=== PATIENT | male | born 1945 | race Caucasian/White ===

== ENCOUNTER 2021-07-23 12:15 | Emergency (ER) | payer MEDICARE ==
[~2021-07-23] VITALS: Ht 193 cm; Wt 127.0 kg
[2021-07-23 12:16] VITALS: BP 129/77
[2021-07-23] MEDS ORDERED: ROSU40TA PO (12:25)
[2021-07-23] MEDS ORDERED: TAMS-12 PO (12:25)
[2021-07-23] MEDS ORDERED: METO25TA3 PO (12:25)
[2021-07-23] MEDS ORDERED: HYDR50TA61 PO (12:25)
[2021-07-23] MEDS ORDERED: VALS320T2 PO (12:25)
[2021-07-23] MEDS ORDERED: MINO2.5T PO (12:25)
[2021-07-23] MEDS ORDERED: AMLO-213 PO (12:25)
[2021-07-23] MEDS ORDERED: FINA5TAB3 PO (12:25)
[2021-07-23] MEDS ORDERED: CLON0.1T PO (12:25)
[2021-07-23] MEDS ORDERED: SENN1TAB77 PO (12:25)
[2021-07-23] MEDS ORDERED: FURO-145 PO (12:25)
[2021-07-23] MEDS ORDERED: INSU100V7 SQ (12:25)
[2021-07-23] MEDS ORDERED: MULT-447 PO (12:25)
[2021-07-23] MEDS ORDERED: ASCO-340 PO (12:25)
[2021-07-23] MEDS ORDERED: ENOX40DI SQ (12:28)
--- NOTE | 2021-07-23 12:42 | NUR ---
SEEN AND EXAMINED BY .
--- NOTE | 2021-07-23 12:52 | NUR ---
Patient discharged to home in stable condition. Written and verbal after care instructions given. Patient verbalizes understanding of instruction.
== END 2021-07-23 12:53 | disposition home or self-care (01) ==
LOC: ER 12:17
DX: L98.9 Disorder of the skin and subcutaneous tissue, unspecified (principal); H91.90 Unspecified hearing loss, unspecified ear; I50.9 Heart failure, unspecified; I11.0 Hypertensive heart disease with heart failure; E11.9 Type 2 diabetes mellitus without complications; Z79.899 Other long term (current) drug therapy

== ENCOUNTER 2022-01-02 02:24 | Inpatient (IN) | payer OTHER, MEDICARE ==
[~2022-01-02] VITALS: Ht 193 cm; Wt 143.9 kg
[~2022-01-02 02:24] MED LIST: AMLO-213 PO; ASCO-340 PO; CLON0.1T PO; ENOX40DI SQ; FINA5TAB3 PO; FURO-145 PO; HYDR50TA61 PO; INSU100V7 SQ; METO25TA3 PO; MINO2.5T PO; MULT-447 PO; ROSU40TA PO; SENN1TAB77 PO; TAMS-12 PO; VALS320T2 PO
--- NOTE | 2022-01-02 02:44 | NUR ---
RACHID [id number] FROM [facility] FOR C/O "R KIDNEY PAIN" X 1 DAY WITH HX OF KIDNEY STONE. PATIENT IS AAOX4. ABLE TO MAKE NEEDS KNOWN. ATTACHED TO MONITOR. VITALS CHECKED.
[2022-01-02] MEDS ORDERED: KETOROLAC TROMETHAMINE INJ 30 MG/ML VIAL ONE (02:52)
[2022-01-02] MEDS ORDERED: ONDANSETRON HCL/PF 4 MG/2 ML VIAL ONE (02:52)
--- NOTE | 2022-01-02 02:57 | NUR ---
RFA #18G S/L BLOOD COLLECTED AND GIVEN TO LAB
[2022-01-02] MEDS ORDERED: KETOROLAC TROMETHAMINE INJ 30 MG/ML VIAL IV ONE (03:00)
[2022-01-02] MEDS ORDERED: ONDANSETRON HCL/PF 4 MG/2 ML VIAL IVP ONE (03:00)
[2022-01-02] MEDS ORDERED: IV NS 0.9% 500 ML BAG IV ONE (03:00)
--- NOTE | 2022-01-02 03:01 | NUR ---
DR. RAUL ROCA AT PT'S BEDSIDE
--- NOTE | 2022-01-02 03:01 | NUR ---
EMT AT PT'S BEDSIDE FOR EKG
[2022-01-02 03:09] LABS: BASOPHILS % (AUTO) 0.4 % (0.0-2.0); EOSINOPHILS % (AUTO) 2.8 % (0.0-6.0); HEMATOCRIT 32 % (39-51); HEMOGLOBIN 10.7 g/dL (13.5-17.5); LYMPHOCYTES # (AUTO) 1.1 K/uL (0.8-4.8); LYMPHOCYTES % (AUTO) 12.8 % (20.0-44.0); MEAN CORPUSCULAR HGB CONC 33 g/dl (31.0-36.0); MEAN CORPUSCULAR VOLUME 82 fL (80-96); MONOCYTES # (AUTO) 0.8 K/uL (0.1-1.30); MONOCYTES % (AUTO) 9.1 % (2.0-12.0); NEUTROPHILS # (AUTO) 6.3 K/uL (1.8-8.9); NEUTROPHILS % (AUTO) 74.9 % (43.0-81.0); PLATELET COUNT (AUTO) 287 K/uL (150-450); RED BLOOD CELL COUNT(AUTO) 3.97 MIL/uL (4.5-6.0); WHITE BLOOD COUNT (AUTO) 8.5 K/uL (4.3-11.0)
--- NOTE | 2022-01-02 03:09 | NUR ---
PT TAKEN TO CT VIA FRANCOIS
--- NOTE | 2022-01-02 03:17 | NUR ---
NO URINE OUTPUT AT THIS TIME; DR. CARTER DO AWARE. WILL F/U WITH URINE OUTPUT
[2022-01-02 03:22] LABS: ALANINE AMINOTRANSFERASE 12 U/L (12-78); ALBUMIN 3.4 g/dL (3.4-5.0); ALKALINE PHOSPHATASE 62 U/L (46-116); ASPARTATE AMINOTRANSFERASE 10 U/L (15-37); BILIRUBIN,DIRECT 0.1 mg/dL (0.0-0.2); BILIRUBIN,TOTAL 0.3 mg/dL (0.2-1.0); CALCIUM, SERUM 8.9 mg/dL (8.5-10.1); CARBON DIOXIDE 33 mmol/L (21-32); CHLORIDE 100 mmol/L (98-107); CREATININE 1.7 mg/dL (0.6-1.3); GLUCOSE 220 mg/dL (74-106); LIPASE 48 U/L (73-393); POTASSIUM 3.5 mmol/L (3.5-5.1); SODIUM SERUM 139 mmol/L (136-145); TOTAL PROTEIN, SERUM 8.7 g/dL (6.4-8.2); UREA NITROGEN, BLOOD 29 mg/dL (7-18)
--- NOTE | 2022-01-02 04:40 | NUR ---
URINE COLLECTED AND SENT TO LAB
--- NOTE | 2022-01-02 05:12 | NUR ---
PAGED DR MALLORIE HARPER GEN SURG FOR CONSULT PER MD'S ORDER
--- NOTE | 2022-01-02 05:23 | NUR ---
COVID ANTIGEN SWAB COLLECTED AND SENT TO LAB
--- NOTE | 2022-01-02 05:24 | NUR ---
NOT ABLE TO DIGITALLY DISIMPACT PT; DR. CARTER DO AWARE.
[2022-01-02] MEDS ORDERED: MORPHINE SULFATE INJ 4 MG/ML DISP.SYRIN ONE (05:25)
[2022-01-02] MEDS ORDERED: MORPHINE SULFATE INJ 2 MG/ML DISP.SYRIN IV ONE (05:30)
--- NOTE | 2022-01-02 05:38 | NUR ---
DR. CARTER ON PHONE CALL WITH ALICIA CHRISTIANSON NP
[2022-01-02] MEDS ORDERED: MAGNESIUM HYDROXIDE 30 ML UDC PO PRN (06:00)
[2022-01-02] MEDS ORDERED: IV NS 0.9% 1,000 ML IV PRN (06:00)
[2022-01-02] MEDS ORDERED: MAG HYDROX/AL HYDROX/SIMETH 30 ML UDC PO PRN (06:00)
[2022-01-02] MEDS ORDERED: Z GUARD REMEDY 4 OZ OINT TP PRN ×2 (06:00→11:00)
[2022-01-02] MEDS ORDERED: MINERAL OIL 133 ML (PYXIS) 1 EA ENEMA RC ONE (06:00)
[2022-01-02] MEDS ORDERED: ONDANSETRON HCL/PF 4 MG/2 ML VIAL IVP PRN ×2 (06:00→11:00)
[2022-01-02] MEDS ORDERED: ZOLPIDEM TARTRATE 5 MG TABLET PO PRN (06:00)
[2022-01-02 06:12] LABS: BILIRUBIN,URINE NEGATIVE (NEGATIVE); COLOR,URINE YELLOW (YELLOW); LEUKOCYTE ESTERASE ,URINE LARGE (NEGATIVE); NITRITE, URINE POSITIVE (NEGATIVE); PROTEIN,URINE 100 mg/dl (NEGATIVE); UGLUCOSE NEGATIVE (NEGATIVE); UROBILINOGEN,URINE 0.2 EU/dL (0.2)
[2022-01-02 06:21] LABS: BACTERIA,URINE Many /HPF (None Seen); SQUAMOUS EPITHELIAL CELL,UR Few /HPF (None Seen); WBC,URINE TOO NUMEROUS TO COUN /HPF (0-3)
--- NOTE | 2022-01-02 07:20 | NUR ---
CLINICAL INFORAMTION GIVEN TO DR MALLORIE HARPER OVER THE PHONE AND THE RESULTS OF THE CT WAS SENT TO
[2022-01-02] MEDS ORDERED: ONDA4TAB11 SL (08:00)
[2022-01-02] MEDS ORDERED: FAMO20TA8 PO (08:00)
[2022-01-02] MEDS ORDERED: SENN-261 PO (08:00)
[2022-01-02] MEDS ORDERED: ASPI-1169 PO (08:00)
[2022-01-02] MEDS ORDERED: METF-440 PO (08:00)
[2022-01-02] MEDS ORDERED: DIPH25CA51 PO (08:00)
[2022-01-02] MEDS ORDERED: GLUC1KIT SQ (08:00)
[2022-01-02] MEDS ORDERED: IBUP-1955 PO (08:00)
[2022-01-02] MEDS ORDERED: HYDR-3980 PO (08:00)
[2022-01-02] MEDS ORDERED: DOCU-141 PO (08:00)
[2022-01-02] MEDS ORDERED: MAGN400O6 PO (08:00)
[2022-01-02] MEDS ORDERED: CALC500T13 PO (08:00)
[2022-01-02] MEDS ORDERED: INSU100V42 SQ (08:00)
[2022-01-02] MEDS ORDERED: POLY17PO4 PO (08:00)
[2022-01-02] MEDS ORDERED: ACET-868 PO (08:00)
[2022-01-02] MEDS ORDERED: CHOL400T58 PO (08:00)
[2022-01-02] MEDS ORDERED: hydrOXYzine PAMOATE 50 MG CAPSULE PO SCH (09:00)
--- NOTE | 2022-01-02 09:46 | NUR ---
GOT BED 307-2
--- NOTE | 2022-01-02 09:51 | NUR ---
report given to Rtia Castellano to continue care.
[2022-01-02] MEDS ORDERED: ANESTHESIA TRAY IN PYXIS 1 EA TRAY MC ONE (10:25)
--- NOTE | 2022-01-02 10:37 | NUR ---
JAGDEEP IBRAHIM WILL CONTACT ORDERING DR ROCA TO PT UNABLE TO LAY FLAT FOR EXAM
[2022-01-02] MEDS ORDERED: IV D5/0.45 NACL 1,000 ML IV PRN (11:00)
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
[2022-01-02 11:20] VITALS: BP 189/87
--- NOTE | 2022-01-02 11:20 | NUR ---
RN NOTES RECEIVED A CALL FROM ADELINA FROM OR, PER ADELINA, DR. OMER ORDERED TO GET CONSENT FOR AN EMERGENCY SIGMOIDOSCOPY PROCEDURE FROM PT AND TO ADMINISTER TAP WATER ENEMA PRIOR TO THE PROCEDURE.
--- NOTE | 2022-01-02 11:50 | NUR ---
RN NOTES CONSENT FOR SIGMOIDOSCOPY PROCEDURE, BLOOD TRANSFUSION, AND ANESTHESIA OBTAINED AND SIGNED BY PT AND TAP WATER ENEMA ADMINISTERED. PT WAS PICKED UP BY OR STAFF WITH ADELINA VIA BED FOR THE SIGMOIDOSCOPY PROCEDURE.
[2022-01-02] MEDS ORDERED: FAMOTIDINE/PF INJ 20 MG/2 ML VIAL IV ONE (11:59)
[2022-01-02] MEDS ORDERED: PIPERACILLIN /TAZOBACTAM 3.375 G in IV D5W 50 ML IV ONE (12:00)
[2022-01-02] MEDS: CLONIDINE HCL 0.1 MG TABLET PO SCH ×3 (12:00→23:41)
[2022-01-02] MEDS: hydrOXYzine PAMOATE 25 MG CAPSULE PO SCH ×2 (13:00→17:12)
[2022-01-02] MEDS ORDERED: hydrALAZINE HCL IV 20 MG VIAL ONE (13:05)
--- NOTE | 2022-01-02 13:30 | NUR ---
RN NOTE PT BACK TO THE UNIT FROM OR WITH OR NURSE RENZO. PT ON S/P SIGMOIDOSCOPY, DENIES PAIN OR DISCOMFORT AT THIS TIME. PER RENZO, PT HAD VOLVULUS IN THE RECTOSIGMOID REGION AND DR. OMER DECOMPRESSED THE COLONIC VOLVULUS AND FIXED IT. PT'S VITAL SIGNS: BP 155/73, P 63, TEMP 97.8, R 18, SPO2 98%. WILL CONTINUE TO MONITOR PT.
--- NOTE | 2022-01-02 15:00 | NUR ---
RN NOTE PT REQUESTING IF HE CAN EAT NOW CALLED DR. NOBLES AND LEFT MESSAGE MADE HIM AWARE THAT PT IS STILL NPO AND PT IS REQUESTING IF HE CAN EAT NOW. AWAITING FOR A CALL BACK.
[2022-01-02] MEDS: MORPHINE SULFATE INJ 2 MG/ML DISP.SYRIN IV PRN (15:59)
[2022-01-02 16:00] VITALS: BP 157/71
--- NOTE | 2022-01-02 16:05 | NUR ---
RN NOTE PT C/O BACK PAIN WITH PAIN SCALE LEVEL OF 9/10 AND REQUESTED FOR MORPHINE. MORPHINE 2MG IVP GIVEN ORDERED PRN Q4H. WILL MONITOR AND REASSESS PT.
--- NOTE | 2022-01-02 17:06 | NUR ---
RN NOTE RECEIVED A CALL FROM FATUMA HOLCOMB MD TO START PT ON CLEAR LIQUID DIET.
[2022-01-02] MEDS: MINOXIDIL (2.5MG) 2.5 MG TABLET PO SCH (17:13)
--- NOTE | 2022-01-02 19:28 | NUR ---
MS RN CLOSING NOTE PT IN BED ASLEEP, EASILY AROUSED. PATIENT IS ALERT AND ORIENTED X3, ABLE TO MAKE NEEDS KNOWN. PT ON ROOM AIR, TOLERATING WELL. NO SOB NOTED AT THIS TIME. NOT IN ANY SIGN OF RESPIRATORY DISTRESS. IV ACCESS IN RFA G #18 INTACT AND PATENT WITH D5 1/2 NS INFUSING AT 75ML/HR. ALL NEEDS ATTENDED. KEPT CLEAN AND COMFORTABLE. SAFETY MEASURES INITIATED: BED IN LOWEST AND LOCKED POSITION, BED ALARM ON, SIDE RAILS UP X2, AND CALL LIGHT WITHIN REACH. ENDORSED TO LENS INSERTER NURSE FOR WINNIE.
[2022-01-02 20:00] VITALS: BP 162/78
--- NOTE | 2022-01-02 20:06 | NUR ---
MS RN OPENING NOTE RECEIVED PATIENT SLEEPING IN BED, EASILY AWAKENED, PT ALERT/ORIENTED X 2-3, PT ABLE TO MAKE NEEDS KNOWN. PT STABLE ON RA, NO S/S OF DISTRESS OR SOB NOTED, BREATHING EVEN AND UNLABORED. IV ACCESS ON RFA #18G INTACT AND INFUSING D5 1/2NS @ 75 ML/HR. SAFETY MEASURES IN PLACE: CALL LIGHT WITHIN REACH, SIDE RAILS UP X 2, BED LOCKED IN LOWEST POSITION, BED ALARM ON. WILL CONTINUE TO MONITOR PATIENT
[2022-01-02] MEDS: PIPERACILLIN /TAZOBACTAM 3.375 G in IV D5W 100 ML IV SCH (20:32)
[2022-01-02] MEDS: ATORVASTATIN 40 MG TABLET PO SCH (21:06)
[2022-01-02] MEDS: TAMSULOSIN 0.4 MG CAP.SR.24H PO SCH (21:06)
[2022-01-02] MEDS: SENNOSIDES/DOCUSATE SODIUM 1 TAB TABLET PO SCH (21:06)
[2022-01-02] MEDS: VALSARTAN 80 MG TABLET PO SCH (21:07)
[2022-01-03] MEDS: MORPHINE SULFATE INJ 2 MG/ML DISP.SYRIN IV PRN (00:33)
[2022-01-03] MEDS: PIPERACILLIN /TAZOBACTAM 3.375 G in IV D5W 100 ML IV SCH ×3 (04:09→20:28)
[2022-01-03] MEDS: CLONIDINE HCL 0.1 MG TABLET PO SCH ×3 (06:24→17:16)
--- NOTE | 2022-01-03 06:39 | NUR ---
MS RN CLOSING NOTE PATIENT AWAKE IN BED, PT ALERT/ORIENTED X 3, PT ABLE TO MAKE NEEDS KNOWN. PATIENT HARD OF HEARING. PT STABLE ON RA, NO S/S OF DISTRESS OR SOB NOTED, BREATHING EVEN AND UNLABORED. IV ACCESS ON RFA #18G INTACT AND INFUSING ZOSYN @ 25 ML/HR. MEDICATIONS GIVEN ORDERED, PT NEEDS MET THROUGHOUT SHIFT. SAFETY MEASURES IN PLACE: CALL LIGHT WITHIN REACH, SIDE RAILS UP X 2, BED LOCKED IN LOWEST POSITION, BED ALARM ON. WILL ENDORSE TO DAYSHIFT NURSE FOR CONTINUITY OF CARE
--- NOTE | 2022-01-03 07:41 | NUR ---
MS RN OPENING NOTE RECEIVED PATIENT SLEEPING IN BED BUT EASILY AWAKEN. PT ALERT/ORIENTED X 2-3, PT ABLE TO MAKE NEEDS KNOWN. IS STABLE ON RA, NO S/S OF DISTRESS OR SOB NOTED, BREATHING EVEN AND UNLABORED. IV ACCESS ON RFA #18G INTACT AND INFUSING D5 1/2NS @ 75 ML/HR. SAFETY MEASURES IN PLACE: CALL LIGHT AND TABLE WITHIN REACH, SIDE RAILS UP X 2, BED LOCKED IN LOWEST POSITION, BED ALARM ON; WILL CARRY OUT PLAN OF CARE DURING SHIFT.
[2022-01-03 08:00] VITALS: BP 128/68
[2022-01-03] MEDS: PANTOPRAZOLE 40 MG VIAL IV SCH (09:06)
[2022-01-03] MEDS: MINOXIDIL (2.5MG) 2.5 MG TABLET PO SCH ×2 (09:08→17:17)
[2022-01-03] MEDS: hydrOXYzine PAMOATE 25 MG CAPSULE PO SCH ×3 (09:09→17:16)
[2022-01-03] MEDS: ASCORBIC ACID 500 MG TABLET PO SCH ×2 (09:10→09:14)
[2022-01-03] MEDS: FUROSEMIDE 20 MG TABLET PO SCH (09:12)
[2022-01-03] MEDS: AMLODIPINE BESYLATE 10 MG TABLET PO SCH (09:13)
[2022-01-03] MEDS: METOPROLOL SUCCINATE 25 MG TAB.SR.24H PO SCH (09:15)
[2022-01-03] MEDS: MULTIVIT W/MINERALS 1 TAB TABLET PO SCH (09:15)
[2022-01-03] MEDS: FINASTERIDE (5 MG) 5 MG TABLET PO SCH (09:16)
--- NOTE | 2022-01-03 11:00 | NUR ---
per pt request, with help pf 5 staff , pt moved from bed 1 to bed 2 with isoflex matrress
--- NOTE | 2022-01-03 11:36 | NUR ---
pt refused AM labs again, RN and lab staff explained to pt importance of blood draw, pt declined, states "they took already 3 vials last night". RN and staff offered to try labs in the PM, ps states "ok, maybe".
[2022-01-03 11:51] VITALS: BP 128/68
[2022-01-03] MEDS: ENOXAPARIN SODIUM 40 MG/0.4 ML DISP.SYRIN SQ SCH (12:11)
--- NOTE | 2022-01-03 12:30 | NUR ---
MS RN NOTES: PT AGREED TO BLOOD DRAW
[2022-01-03 13:37] LABS: HEMATOCRIT 31 % (39-51); HEMOGLOBIN 10.1 g/dL (13.5-17.5); LYMPHOCYTES # (AUTO) 0.7 K/uL (0.8-4.8); LYMPHOCYTES % (AUTO) 10.9 % (20.0-44.0); MEAN CORPUSCULAR HGB CONC 33 g/dl (31.0-36.0); MEAN CORPUSCULAR VOLUME 82 fL (80-96); MONOCYTES # (AUTO) 0.6 K/uL (0.1-1.30); NEUTROPHILS # (AUTO) 4.8 K/uL (1.8-8.9); NEUTROPHILS % (AUTO) 76.1 % (43.0-81.0); PLATELET COUNT (AUTO) 241 K/uL (150-450); RED BLOOD CELL COUNT(AUTO) 3.75 MIL/uL (4.5-6.0); WHITE BLOOD COUNT (AUTO) 6.3 K/uL (4.3-11.0)
[2022-01-03 15:01] LABS: CALCIUM, SERUM 8.2 mg/dL (8.5-10.1); CARBON DIOXIDE 28 mmol/L (21-32); CHLORIDE 100 mmol/L (98-107); CHOLESTEROL 92 mg/dL (<200); CREATININE 1.7 mg/dL (0.6-1.3); GLUCOSE 243 mg/dL (74-106); HDL CHOLESTEROL 37 mg/dL (40-60); LDL 46 mg/dL (0-99); PHOSPHORUS 2.9 mg/dL (2.5-4.9); POTASSIUM 3.2 mmol/L (3.5-5.1); SODIUM SERUM 136 mmol/L (136-145); THYROID STIMULATING HORMONE 2.559 uIU/mL (0.358-3.74); TRIGLYCERIDES 95 mg/dL (30-150); UREA NITROGEN, BLOOD 26 mg/dL (7-18)
[2022-01-03 16:00] VITALS: BP 126/51
[2022-01-03] MEDS: METFORMIN 500 MG TABLET PO SCH (17:39)
[2022-01-03] MEDS ORDERED: POTASSIUM CHLORIDE 20 MEQ POWDER PACKET PO SCH (18:00)
--- NOTE | 2022-01-03 19:11 | NUR ---
MS RN CLOSING NOTES: PATIENT ASLEEP BUT EASILY AWAKEN. PT ALERT/ORIENTED X 2-3 WITH PERIODS OF FORGETFULNESS. PT HARD OF HEARING ON R SIDE, ABLE TO HEAR BETTER ON LEFT EAR. PT ABLE TO MAKE NEEDS KNOWN. IS STABLE ON RA, NO S/S OF DISTRESS OR SOB NOTED, BREATHING EVEN AND UNLABORED. IV ACCESS ON RFA #18G, SALINE LOCKED, IV FLUIDS DC'D PER MD. SKIN ASSESSMENT DONE AND DOCUMENTED IN CHART, WOUND CARE CONSULT ORDERED. KEPT PT DRY, CLEAN AND COMFORTABLE. SAFETY MEASURES IN PLACE: CALL LIGHT AND TABLE WITHIN REACH, SIDE RAILS UP X 2, BED LOCKED IN LOWEST POSITION, BED ALARM ON; WILL CARRY OUT PLAN OF CARE DURING SHIFT.
--- NOTE | 2022-01-03 19:24 | NUR ---
RN OPENING NOTE PATIENT IN BED, EYES CLOSED, SLEEPING. PATIENT IS A/O X 2-3 AT THIS TIME, WITH PERIODS OF CONFUSION. PATIENT IS ON RA, TOLERATING WELL, NO SOB NOTED, BREATHING EVEN AND UNLABORED. PATIENT NOTED TO HAVE HEARING DIFFICULTIES. PATIENT HAS A RFA 18 G, SALINE LOCKED ONLY. PATIENT DOES NOT REPORT OF ANY PAIN AT THIS TIME. SAFETY MEASURES IN PLACE: BED LOCKED AND IN LOWEST POSITION, CALL LIGHT WITHIN REACH, SIDE RAILS UP. WILL MONITOR PATIENT CLOSELY.
[2022-01-03 20:00] VITALS: BP 125/65
[2022-01-03] MEDS: VALSARTAN 80 MG TABLET PO SCH (22:02)
[2022-01-03] MEDS: TAMSULOSIN 0.4 MG CAP.SR.24H PO SCH (22:02)
[2022-01-03] MEDS: ATORVASTATIN 40 MG TABLET PO SCH (22:03)
[2022-01-03] MEDS: SENNOSIDES/DOCUSATE SODIUM 1 TAB TABLET PO SCH (22:03)
--- NOTE | 2022-01-03 22:30 | NUR ---
RN NOTE PATIENT COMPLAINING THAT IV ON THE R FA 22G GRIDER AND IS PAINFUL. L HAND 22 G ESTABLISHED. PATENT AND INTACT, RESUMED IV ABX.
[2022-01-04] MEDS: CLONIDINE HCL 0.1 MG TABLET PO SCH ×4 (00:11→17:41)
[2022-01-04] MEDS: PIPERACILLIN /TAZOBACTAM 3.375 G in IV D5W 100 ML IV SCH ×3 (04:02→20:10)
--- NOTE | 2022-01-04 06:00 | NUR ---
PATIENT REFUSED TO BE TURNED AND REPOSITIONED.
--- NOTE | 2022-01-04 06:23 | NUR ---
PATIENT REFUSED TO HAVE LABS DRAWN, PHLEBOTOMISTS WILL COME BACK LATER.
--- NOTE | 2022-01-04 06:41 | NUR ---
RN CLOSING NOTE PATIENT IN BED, EYES CLOSED, SLEEPING. PATIENT IS A/O X 2-3 AT THIS TIME, WITH PERIODS OF CONFUSION AND FORGETFULNESS. PATIENT IS ON RA, TOLERATING WELL, NO SOB NOTED, BREATHING EVEN AND UNLABORED. PATIENT NOTED TO HAVE HEARING DIFFICULTIES. PATIENT HAS A L HAND 22 G, ZOSYN IV ABX STILL ONGOING. PATIENT DOES NOT REPORT OF ANY PAIN AT THIS TIME. SAFETY MEASURES IN PLACE: BED LOCKED AND IN LOWEST POSITION, CALL LIGHT WITHIN REACH, SIDE RAILS UP. ALL NEEDS MET AND ATTENDED. ALL ORDERS CARRIED OUT. WILL ENDORSE TO DAY SHIFT NURSE FOR WINNIE.
--- NOTE | 2022-01-04 07:30 | NUR ---
MS RN OPENING NOTE RECEIVED PATIENT ON BED, AWAKE AND A/O X 2-3 AT THIS TIME, WITH PERIODS OF CONFUSION. ON ROOM AIR TOLERATING WELL, NO SOB NOTED, BREATHING EVEN AND UNLABORED. PATIENT NOTED TO HAVE HEARING DIFFICULTIES AT THE RIGHT SIDE. WITH IV ACCESS AT THE RIGHT FOREARM G18, SALINE LOCKED, PATENT AND INTACT. SAFETY MEASURES IN PLACED: BED LOCKED AND IN LOWEST POSITION, CALL LIGHT WITHIN REACH, SIDE RAILS UP. WILL MONITOR PATIENT CLOSELY.
[2022-01-04] MEDS: MORPHINE SULFATE INJ 2 MG/ML DISP.SYRIN IV PRN ×3 (07:53→19:59)
--- NOTE | 2022-01-04 07:53 | NUR ---
RN NOTE PATIENT WAS COMPLAINING OF PAIN AT THE BACK AT THE SCALE OF 9/10. MORPHINE 2MG IV WAS GIVEN PRN FOR PAIN.
--- NOTE | 2022-01-04 08:30 | NUR ---
RN NOTE PATIENT REFUSED THE SALVAGE WINDER FOR BLOOD DRAW. SALVAGE WINDER WILL COME BACK LATER FOR BLOOD DRAW.
[2022-01-04] MEDS: PANTOPRAZOLE 40 MG VIAL IV SCH (08:55)
[2022-01-04] MEDS: FINASTERIDE (5 MG) 5 MG TABLET PO SCH (08:56)
[2022-01-04] MEDS: MINOXIDIL (2.5MG) 2.5 MG TABLET PO SCH ×2 (08:56→17:40)
[2022-01-04] MEDS: MULTIVIT W/MINERALS 1 TAB TABLET PO SCH (08:56)
[2022-01-04] MEDS: FUROSEMIDE 20 MG TABLET PO SCH (08:57)
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
--- NOTE | 2022-01-04 09:13 | NUR ---
WOUND CARE CONSULT: PT PRESENTS ANGRY AND IRRITABLE WITH DRY FACIAL LESIONS, PRESENT ON ADMISSION. PT ALSO NOTED TO HAVE REDNESS TO ABDOMINAL/GROIN SKIN FOLDS AND EDEMA WITH DISCOLORATIONS/SCALY SKIN TO LOWER LEGS, PRESENT ON ADMISSION. 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 DR EDMONDSON NOTIFIED. RECOMMENDATIONS MADE FOR SKIN PROTECTION. DISCUSSED WITH NURSING STAFF. PT REFUSED TO TURN FOR FULL SKIN ASSESSMENT AND REFUSED TO HAVE HEELS FLOATED ON PILLOWS. PT IS ON [place] ISOFLEX LOW AIRLOSS BED. MD IN AGREEMENT WITH PLAN OF CARE.
--- NOTE | 2022-01-04 09:30 | NUR ---
RN NOTE CHARGE NURSE CHANGED ASSIGNMENT AND WILL GIVE PATIENT A MALE NURSE. WILL ENDORSE PATIENT TO JAGDEEP GONZALES.
[2022-01-04] MEDS: METFORMIN 500 MG TABLET PO SCH ×2 (09:34→17:40)
[2022-01-04] MEDS: ASCORBIC ACID 500 MG TABLET PO SCH (09:34)
[2022-01-04] MEDS: hydrOXYzine PAMOATE 25 MG CAPSULE PO SCH ×3 (09:34→17:40)
[2022-01-04] MEDS: METOPROLOL SUCCINATE 25 MG TAB.SR.24H PO SCH (09:34)
[2022-01-04] MEDS: ENOXAPARIN SODIUM 40 MG/0.4 ML DISP.SYRIN SQ SCH (09:35)
[2022-01-04] MEDS: AMLODIPINE BESYLATE 10 MG TABLET PO SCH (09:35)
--- NOTE | 2022-01-04 09:45 | NUR ---
MS RN NOTE RECEIVED ENDORSEMENT FROM JAGDEEP MCCABE FOR CONTINUITY OF CARE. PATIENT IN STABLE CONDITION.
[2022-01-04] MEDS: CLOTRIMAZOLE 1% 15 GM TUBE TP SCH (17:45)
--- NOTE | 2022-01-04 19:00 | NUR ---
MS RN CLOSING NOTE PATIENT ON BED, AWAKE AND A/O X 3 AT THIS TIME. ON ROOM AIR TOLERATING WELL, NO SOB NOTED, BREATHING EVEN AND UNLABORED. PATIENT NOTED TO HAVE HEARING DIFFICULTIES AND HEARS BETTER ON THE LEFT EAR BUT STILL [place]. WITH IV ACCESS AT THE RIGHT FOREARM G18, SALINE LOCKED, PATENT AND INTACT. PATIENT REFUSED BLOOD DRAW AND WAS VERY RUDE TO CARE PROVIDED EARLIER. PATIENT SEEMED TO HAVE CALMED DOWN AND HAD NO UNTOWARD BEHAVIOR AFTER THE CHANGE. SAFETY MEASURES IN PLACED: BED LOCKED AND IN LOWEST POSITION, CALL LIGHT WITHIN REACH, SIDE RAILS UP. ENDORSED PATIENT TO NEXT SHIFT FOR CONTINUITY OF CARE.
[2022-01-04 20:00] VITALS: BP 118/62
--- NOTE | 2022-01-04 20:37 | NUR ---
RN OPENING NOTE PATIENT AWAKE IN BED. A/OX3. NO S/S OF DISTRESS, BREATHING WITHOUT DIFFICULTY ON ROOM AIR. L-HAND #22 SL INTACT AND PATENT. SAFETY MEASURES IN PLACE: BED LOCKED IN PLACE AND AT LOWEST POSITION, RAILS UP X2, CALL SILVER WITHIN REACH. WILL CONTINUE TO MONITOR PATIENT.
[2022-01-04] MEDS: TAMSULOSIN 0.4 MG CAP.SR.24H PO SCH (21:55)
[2022-01-04] MEDS: SENNOSIDES/DOCUSATE SODIUM 1 TAB TABLET PO SCH (21:55)
[2022-01-04] MEDS: VALSARTAN 80 MG TABLET PO SCH (21:55)
[2022-01-04] MEDS: ATORVASTATIN 40 MG TABLET PO SCH (21:55)
[2022-01-05] MEDS: CLONIDINE HCL 0.1 MG TABLET PO SCH ×4 (00:03→17:07)
[2022-01-05] MEDS: MORPHINE SULFATE INJ 2 MG/ML DISP.SYRIN IV PRN ×4 (02:34→21:42)
[2022-01-05] MEDS: PIPERACILLIN /TAZOBACTAM 3.375 G in IV D5W 100 ML IV SCH ×3 (05:16→20:20)
--- NOTE | 2022-01-05 05:33 | NUR ---
RN NOTE PATIENT WAS OFFERED TO BE CLEANED BY SATYA, SERENA AND MYSELF. PATIENT REFUSED. PATIENT WAS EDUCATED, BUT NONETHELESS DECLINED. PATIENT WANTED "TO SLEEP". PATIENT STABLE; WILL CONTINUE TO MONITOR PATIENT.
--- NOTE | 2022-01-05 06:20 | NUR ---
RN NOTE PATIENT SHOWS A TRICKLE OF URINE WHEN HE URINATES AND COMPLAINED OF VERY MILD PAIN AT HIS BLADDER. PATIENT IS GROSSLY, MORBIDLY OBESE W/ HIS STOMACH PUTTING PRESSURE ON HIS BLADDER. BLADDER SCANNER OBTAINED TO VERIFY ANY RESIDUAL. 180CC WERE SHOWN TO BE PRESENT, AND PATIENT WAS STILL SHOWING AN ABILITY TO URINATE. PATIENT STABLE; WILL CONTINUE TO MONITOR PATIENT.
--- NOTE | 2022-01-05 06:58 | NUR ---
RN CLOSING NOTE PATIENT AWAKE IN BED. A/OX3. NO S/S OF DISTRESS, BREATHING WITHOUT DIFFICULTY ON ROOM AIR. L-HAND #22 TKO INTACT AND PATENT. SAFETY MEASURES IN PLACE: BED LOCKED AND AT LOWEST POSITION, RAILS UP X2, CALL SILVER WITHIN REACH. WILL ENDORSE TO NEXT SHIFT FOR WINNIE.
[2022-01-05 07:00] VITALS: BP 139/62
--- NOTE | 2022-01-05 07:15 | NUR ---
RN-NOTES RECEIVED PATIENT SLEEPING WITH BREATHING EVEN AND NONLABORED EASILY AROUSE,NO ACUTE DISTRESS NOTED. PATIENT HAD IV LINE ON LEFT HAND #22. INTACT. WILL CONT. MONITORING.
[2022-01-05] MEDS: PANTOPRAZOLE 40 MG TABLET.DR PO SCH (07:57)
[2022-01-05] MEDS: METFORMIN 500 MG TABLET PO SCH ×2 (08:57→17:07)
[2022-01-05] MEDS: FINASTERIDE (5 MG) 5 MG TABLET PO SCH (08:57)
[2022-01-05] MEDS: ASCORBIC ACID 500 MG TABLET PO SCH (08:57)
[2022-01-05] MEDS: MULTIVIT W/MINERALS 1 TAB TABLET PO SCH (08:57)
[2022-01-05] MEDS: hydrOXYzine PAMOATE 25 MG CAPSULE PO SCH ×3 (08:58→17:06)
[2022-01-05] MEDS: METOPROLOL SUCCINATE 25 MG TAB.SR.24H PO SCH (08:59)
[2022-01-05] MEDS: MINOXIDIL (2.5MG) 2.5 MG TABLET PO SCH ×2 (08:59→17:07)
[2022-01-05] MEDS: FUROSEMIDE 20 MG TABLET PO SCH (09:00)
[2022-01-05] MEDS: AMLODIPINE BESYLATE 10 MG TABLET PO SCH (09:00)
[2022-01-05] MEDS: ENOXAPARIN SODIUM 40 MG/0.4 ML DISP.SYRIN SQ SCH (09:07)
[2022-01-05] MEDS: CLOTRIMAZOLE 1% 15 GM TUBE TP SCH ×2 (09:25→17:16)
--- NOTE | 2022-01-05 19:10 | NUR ---
RN-NOTES PATIENT LYING IN BED INTERMITTENTLY SLEEPING ,COMPLIANT WITH MEDICATIONS. ABLE TO MAKE NEEDS KNOWN TO THE STAFF. NOTED PATIENT WITH DEMANDING ,NEEDY AND EASILY ANGRY BEHAVIOR. GOOD SIMONA CARE RENDERED. PATIENT REFUSE TO USE HIS COMPRESSOR ON EXPLAINED RISK AND BENEFITS BUT PATIENT STILL REFUSE. IV LINE ON RIGHT HAND #22, INTACT. ALL NEEDS ATTENDED AND ANTICIPATED. WILL ENDORSE TO INCOMING NURSE FOR CONTINUITY OF CARE.
[2022-01-05 20:00] VITALS: BP 13/64
--- NOTE | 2022-01-05 20:11 | NUR ---
RN OPENING NOTE PATIENT AWAKE IN BED. A/OX4. NO S/S OF DISTRESS, BREATHING WITHOUT DIFFICULTY ON ROOM AIR. L-HAND #20 SL INTACT AND PATENT. SAFETY MEASURES IN PLACE: BED LOCKED AND AT LOWEST POSITION, RAILS UP X2, CALL SILVER WITHIN REACH. WILL CONTINUE TO MONITOR PATIENT.
[2022-01-05] MEDS: TAMSULOSIN 0.4 MG CAP.SR.24H PO SCH (21:42)
[2022-01-05] MEDS: SENNOSIDES/DOCUSATE SODIUM 1 TAB TABLET PO SCH (21:42)
[2022-01-05] MEDS: VALSARTAN 80 MG TABLET PO SCH (21:42)
[2022-01-05] MEDS: ATORVASTATIN 40 MG TABLET PO SCH (21:42)
[2022-01-06] MEDS: CLONIDINE HCL 0.1 MG TABLET PO SCH ×5 (00:36→17:57)
[2022-01-06] MEDS: MORPHINE SULFATE INJ 2 MG/ML DISP.SYRIN IV PRN ×3 (01:50→10:58)
[2022-01-06] MEDS: PIPERACILLIN /TAZOBACTAM 3.375 G in IV D5W 100 ML IV SCH ×4 (04:15→20:00)
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
--- NOTE | 2022-01-06 06:46 | NUR ---
RN CLOSING NOTE PATIENT ASLEEP IN BED. A/OX3. NO S/S OF DISTRESS, BREATHING WITHOUT DIFFICULTY ON ROOM AIR. R-HAND SL #20 SL INTACT AND PATENT. SAFETY MEASURES IN PLACE: BED LOCKED IN PLACE, AT LOWEST POSITION, RAILS UP X2, CALL SILVER WITHIN REACH. WILL ENDORSE TO NEXT SHIFT FOR WINNIE.
[2022-01-06 07:00] VITALS: BP 155/72
--- NOTE | 2022-01-06 07:44 | NUR ---
MS RN OPENING NOTE PATIENT LAYING IN BED, A/O X 3, ABLE TO MAKE NEEDS KNOWN. TOLERATING WELL ON ROOM AIR WITH NO S/S RESPIRATORY DISTRESS. NO COMPLAINTS OF PAIN OR DISCOMFORT. R HAND # 20 SL CLEAN, INTACT, AND FLUSHING WELL. SAFETY MEASURES IN PLACE: BED LOCKED IN PLACE, AT LOWEST POSITION, RAILS UP X2, CALL SILVER WITHIN REACH. WILL CONTINUE TO MONITOR.
[2022-01-06] MEDS: PANTOPRAZOLE 40 MG TABLET.DR PO SCH (08:12)
[2022-01-06] MEDS: FUROSEMIDE 20 MG TABLET PO SCH (08:32)
[2022-01-06] MEDS: METFORMIN 500 MG TABLET PO SCH ×2 (08:33→17:54)
[2022-01-06] MEDS: FINASTERIDE (5 MG) 5 MG TABLET PO SCH (08:33)
[2022-01-06] MEDS: MULTIVIT W/MINERALS 1 TAB TABLET PO SCH (08:33)
[2022-01-06] MEDS: hydrOXYzine PAMOATE 25 MG CAPSULE PO SCH ×3 (08:34→17:54)
[2022-01-06] MEDS: ASCORBIC ACID 500 MG TABLET PO SCH (08:34)
[2022-01-06] MEDS: ENOXAPARIN SODIUM 40 MG/0.4 ML DISP.SYRIN SQ SCH (08:35)
[2022-01-06] MEDS: CLOTRIMAZOLE 1% 15 GM TUBE TP SCH ×2 (08:36→17:55)
[2022-01-06] MEDS: AMLODIPINE BESYLATE 10 MG TABLET PO SCH (08:40)
[2022-01-06] MEDS: METOPROLOL SUCCINATE 25 MG TAB.SR.24H PO SCH (08:40)
[2022-01-06] MEDS: MINOXIDIL (2.5MG) 2.5 MG TABLET PO SCH ×2 (08:40→17:54)
--- NOTE | 2022-01-06 13:14 | NUR ---
MS RN NOTE PATIENT REFUSED HIS 1200 AND 1300 BLOOD PRESSURE MEDICATIONS AND ZOSYN. RISKS AND BENEFITS EXPLAINED X 3, PATIENT CONTINUED TO REFUSE MEDICATIONS.
[2022-01-06 16:00] VITALS: BP 162/80
--- NOTE | 2022-01-06 19:00 | NUR ---
MS RN CLOSING NOTES PATIENT LAYING IN BED, A/O X 3, ABLE TO MAKE NEEDS KNOWN. TOLERATING WELL ON ROOM AIR WITH NO S/S RESPIRATORY DISTRESS. NO COMPLAINTS OF PAIN OR DISCOMFORT. NO IV ACCESS AT THIS TIME, PATIENT REFUSED IV START AT THIS TIME, MD AWARE. SAFETY MEASURES IN PLACE: BED LOCKED IN PLACE, AT LOWEST POSITION, RAILS UP X2, CALL SILVER WITHIN REACH. ALL NEEDS MET. PATIENT TURNED Q2H DURING SHIFT. WILL ENDORSE TO SENIOR NATIONAL ACCOUNT MANAGER FOR WINNIE.
--- NOTE | 2022-01-06 20:00 | NUR ---
Offered to insert IV access to be able to give antibiotics IV. pt refused to insert iv access since am and refused medication. Charge nurse and aware.
[2022-01-06 20:06] VITALS: BP 146/72
[2022-01-06] MEDS: TAMSULOSIN 0.4 MG CAP.SR.24H PO SCH (21:03)
[2022-01-06] MEDS: ATORVASTATIN 40 MG TABLET PO SCH (21:03)
[2022-01-06] MEDS: SENNOSIDES/DOCUSATE SODIUM 1 TAB TABLET PO SCH (21:03)
[2022-01-06] MEDS: VALSARTAN 80 MG TABLET PO SCH (21:04)
[2022-01-06] MEDS: ACETAMINOPHEN 325 MG TABLET PO PRN (21:04)
[2022-01-06] MEDS: HYDROCODONE/APAP 10/325MG TABLET PO PRN (23:07)
[2022-01-07] MEDS: CLONIDINE HCL 0.1 MG TABLET PO SCH ×4 (00:12→17:34)
[2022-01-07] MEDS: PIPERACILLIN /TAZOBACTAM 3.375 G in IV D5W 100 ML IV SCH ×3 (04:00→20:00)
[2022-01-07] MEDS: ACETAMINOPHEN 325 MG TABLET PO PRN (04:26)
[2022-01-07] MEDS: HYDROCODONE/APAP 10/325MG TABLET PO PRN ×2 (05:08→20:03)
--- NOTE | 2022-01-07 06:34 | NUR ---
PATIENT IN BED ASLEEP, EASILY AWAKEN TO CALL OR TOUCH. PATIENT ON RA, NOT IN RESPIRATORY DISTRESS. PT REFUSED TO INSERT IV ACCESS AND IV MEDS. SAFETY MEASURES MAINTAINED. HEAD OF BED IS ELEVATED AT 40 DEGREE, SIDE RAILS UP X 2, BED IS IN LOWEST POSITION. BED ALARM IS ON. WILL ENDORSED TO NEXT SHIFT NURSE FOR CONTINUITY OF CARE.
--- NOTE | 2022-01-07 07:19 | NUR ---
MS RN OPENING NOTE PATIENT ON BED, AWAKE A/O X 3. ON ROOM AIR TOLERATING WELL, NO SOB NOTED, BREATHING EVEN AND UNLABORED. PATIENT NOTED TO HAVE HEARING DIFFICULTIES AND HEARS BETTER ON THE LEFT EAR BUT STILL [place]. PATIENT REFUSED TO HAVE IV ACCESS PLACED, MD AWARE ENDORSED. SAFETY MEASURES IN PLACED: BED LOCKED AND IN LOWEST POSITION, CALL LIGHT WITHIN REACH, SIDE RAILS UP. WILL CONTINUE TO MONITOR PATIENT.
[2022-01-07 08:09] VITALS: BP 152/68
[2022-01-07] MEDS: MULTIVIT W/MINERALS 1 TAB TABLET PO SCH (08:51)
[2022-01-07] MEDS: ASCORBIC ACID 500 MG TABLET PO SCH (08:52)
[2022-01-07] MEDS: hydrOXYzine PAMOATE 25 MG CAPSULE PO SCH ×3 (08:53→17:33)
[2022-01-07] MEDS: MINOXIDIL (2.5MG) 2.5 MG TABLET PO SCH ×2 (08:53→17:38)
[2022-01-07] MEDS: METFORMIN 500 MG TABLET PO SCH ×2 (08:53→17:33)
[2022-01-07] MEDS: FINASTERIDE (5 MG) 5 MG TABLET PO SCH (08:53)
[2022-01-07] MEDS: FUROSEMIDE 20 MG TABLET PO SCH (08:53)
[2022-01-07] MEDS: METOPROLOL SUCCINATE 25 MG TAB.SR.24H PO SCH (08:54)
[2022-01-07] MEDS: AMLODIPINE BESYLATE 10 MG TABLET PO SCH (08:54)
[2022-01-07] MEDS: ENOXAPARIN SODIUM 40 MG/0.4 ML DISP.SYRIN SQ SCH (08:56)
[2022-01-07] MEDS: PANTOPRAZOLE 40 MG TABLET.DR PO SCH (08:58)
[2022-01-07] MEDS: CLOTRIMAZOLE 1% 15 GM TUBE TP SCH ×2 (09:00→17:00)
[2022-01-07 15:37] VITALS: BP 130/62
--- NOTE | 2022-01-07 15:37 | NUR ---
MS RN NOTE MD NOTIFIED OF PATIENT REFUSING IV INSERTION, BLOOD DRAW AND SOME MEDICATIONS SOMETIMES. ORDER RECEIVED TO REFER PATIENT TO DR. ANDERSON REGARDING BASAL CELL CARCINOMA. ORDERS READ BACK AND VERIFIED. PATIENT IN STABLE CONDITION.
--- NOTE | 2022-01-07 19:00 | NUR ---
MS RN CLOSING NOTE PATIENT ON BED, AWAKE A/O X 3. ON ROOM AIR TOLERATING WELL, NO SOB NOTED, BREATHING EVEN AND UNLABORED. PATIENT NOTED TO HAVE HEARING DIFFICULTIES AND HEARS BETTER ON THE LEFT EAR BUT STILL [place]. PATIENT REFUSED TO HAVE IV ACCESS PLACED, MD AWARE ENDORSED. SAFETY MEASURES IN PLACED: BED LOCKED AND IN LOWEST POSITION, CALL LIGHT WITHIN REACH, SIDE RAILS UP. ENDORSED TO NEXT SHIFT FOR CONTINUITY OF CARE.
[2022-01-07 20:00] VITALS: BP 135/69
--- NOTE | 2022-01-07 20:00 | NUR ---
MS RN OPENING NOTE PATIENT ON BED, AWAKE A/O X 3. ON ROOM AIR TOLERATING WELL, NO SOB NOTED, BREATHING EVEN AND UNLABORED. PATIENT NOTED TO HAVE HEARING DIFFICULTIES AND HEARS BETTER ON THE LEFT EAR BUT STILL [place]. PATIENT REFUSED TO HAVE IV ACCESS PLACED AND LAB DRAW STILL AT THIS TIME. SAFETY MEASURES IN PLACED: BED LOCKED AND IN LOWEST POSITION, CALL LIGHT WITHIN REACH, SIDE RAILS UP.
--- NOTE | 2022-01-07 20:09 | NUR ---
RN NOTE PRN NORCO GIVEN FOR 8/10 PAIN TOLERATED WELL.
[2022-01-07] MEDS: ATORVASTATIN 40 MG TABLET PO SCH (22:01)
[2022-01-07] MEDS: TAMSULOSIN 0.4 MG CAP.SR.24H PO SCH (22:01)
[2022-01-07] MEDS: SENNOSIDES/DOCUSATE SODIUM 1 TAB TABLET PO SCH (22:02)
[2022-01-07] MEDS: VALSARTAN 80 MG TABLET PO SCH (22:02)
[2022-01-08] MEDS: CLONIDINE HCL 0.1 MG TABLET PO SCH ×5 (00:46→23:41)
[2022-01-08] MEDS: PIPERACILLIN /TAZOBACTAM 3.375 G in IV D5W 100 ML IV SCH (04:00)
[2022-01-08] MEDS: HYDROCODONE/APAP 10/325MG TABLET PO PRN ×4 (04:23→21:29)
--- NOTE | 2022-01-08 04:35 | NUR ---
RN NOTE PRN NORCO GIVEN FOR 8/10 PAIN TOLERATED WELL.
--- NOTE | 2022-01-08 05:43 | NUR ---
rn note pt sleeping upset when i tried to wake him up to check his bp, refused explained to him we need to check in order to give his medication pt stated " i don't want it then leave now!"
--- NOTE | 2022-01-08 06:17 | NUR ---
RN NOTE PT REFUSED LAB DRAW THIS MORNIG X3 RISK AND BENEFITS EXPLAINED X3
--- NOTE | 2022-01-08 07:26 | NUR ---
MS RN OPENING NOTE RECEIVED PT IN BED AWAKE AND RESTING IN BED. PT A/O X3, ABLE TO MAKE NEEDS KNOWN. PT ON RA, TOLERATING WELL. NO SOB NOTED. NOT IN ANY SIGN OF RESPIRATORY DISTRESS. PT NOTED WITH NO IV ACCESS. OFFERED THE PT FOR IV REINSERTION, PT STRONGLY REFUSED AT THIS TIME. SAFETY MEASURES IN PLACE: BED IN LOWEST AND LOCKED POSITION, SIDE RAILS UPX2, BED ALARM ON, AND CALL LIGHT WITHIN REACH. WILL CONTINUE TO MONITOR PT.
[2022-01-08] MEDS: PANTOPRAZOLE 40 MG TABLET.DR PO SCH (08:16)
[2022-01-08] MEDS: FUROSEMIDE 20 MG TABLET PO SCH (08:54)
[2022-01-08] MEDS: hydrOXYzine PAMOATE 25 MG CAPSULE PO SCH ×3 (08:54→16:06)
[2022-01-08] MEDS: MULTIVIT W/MINERALS 1 TAB TABLET PO SCH (08:54)
[2022-01-08] MEDS: METFORMIN 500 MG TABLET PO SCH ×2 (08:55→16:07)
[2022-01-08] MEDS: ASCORBIC ACID 500 MG TABLET PO SCH (08:56)
[2022-01-08] MEDS: METOPROLOL SUCCINATE 25 MG TAB.SR.24H PO SCH (08:56)
[2022-01-08] MEDS: AMLODIPINE BESYLATE 10 MG TABLET PO SCH (08:56)
[2022-01-08] MEDS: FINASTERIDE (5 MG) 5 MG TABLET PO SCH (08:56)
[2022-01-08] MEDS: MINOXIDIL (2.5MG) 2.5 MG TABLET PO SCH ×2 (08:56→16:07)
[2022-01-08] MEDS: ENOXAPARIN SODIUM 40 MG/0.4 ML DISP.SYRIN SQ SCH (08:58)
[2022-01-08 09:17] VITALS: BP 157/87
[2022-01-08] MEDS: CLOTRIMAZOLE 1% 15 GM TUBE TP SCH ×2 (09:46→16:07)
--- NOTE | 2022-01-08 12:03 | NUR ---
RN NOTE PT C/O GENERALIZED BODY PAIN, WITH PAIN SCALE LEVEL OF 7/10. NORCO 10/325MG 1 TAB GIVEN ORDERED PRN Q6H FOR PAIN. WILL MONITOR AND REASSESS PT.
--- NOTE | 2022-01-08 14:50 | NUR ---
RN NOTE PT REQUESTED FOR THE FREQUENCY OF HIS NORCO TO CHANGE TO Q4HRS PRN. CALLED DR. GUADARRAMA AND AGREED TO PT'S REQUEST. PER MD TO DC PREVIOUS FREQUENCY ORDER FOR NORCO FROM Q6HRS PRN TO NORCO 10/325MG 1 TAB PO Q4HRS PRN. ORDERS CARRIED OUT.
[2022-01-08 16:07] VITALS: BP_SYST 115; BP_SYST 173; BP_DIAS 58; BP_DIAS 89
--- NOTE | 2022-01-08 16:10 | NUR ---
RN NOTE PT C/O GENERALIZED BODY PAIN, WITH PAIN SCALE LEVEL OF 7/10. NORCO 10/325MG 1 TAB GIVEN ORDERED PRN Q4H FOR PAIN. WILL MONITOR AND REASSESS PT.
--- NOTE | 2022-01-08 19:12 | NUR ---
MS RN CLOSING NOTE PT IN BED AWAKE AND RESTING IN BED. PT A/O X3, ABLE TO MAKE NEEDS KNOWN. PT ON RA, TOLERATING WELL. NO SOB NOTED. NOT IN ANY SIGN OF RESPIRATORY DISTRESS. PT NOTED WITH NO IV ACCESS. OFFERED THE PT FOR IV REINSERTION, PT STRONGLY REFUSED. ALL NEEDS ATTENDED. KEPT CLEAN AND COMFORTABLE. PT ALSO REFUSED TO BE TURNED AND REPOSITIONED DURING SHIFT. OFFERED AND EXPLAINED RISK AND BENEFITS X3, STILL REFUSED. SAFETY MEASURES IN PLACE: BED IN LOWEST AND LOCKED POSITION, SIDE RAILS UPX2, BED ALARM ON, AND CALL LIGHT WITHIN REACH. ENDORSED TO USED CAR RENOVATOR NURSE FOR WINNIE.
--- NOTE | 2022-01-08 19:17 | NUR ---
MS RN OPENING NOTE RECEIVED PT IN BED AWAKE AND RESTING IN BED.AOX3,ABLE TO MAKE NEEDS KNOWN. PT ON RA TOLERATING WELL. NO SOB/DISTRESS NOTED. PT NOTED WITH NO IV ACCESS. OFFERED THE PT FOR IV REINSERTION, PT STRONGLY REFUSED AT THIS TIME. SAFETY MEASURES IN PLACE: BED IN LOWEST AND LOCKED POSITION, SIDE RAILS UPX2, BED ALARM ON, AND CALL LIGHT WITHIN REACH. WILL CONTINUE TO MONITOR .
[2022-01-08 20:00] VITALS: BP 158/75
[2022-01-08] MEDS: TAMSULOSIN 0.4 MG CAP.SR.24H PO SCH (21:09)
[2022-01-08] MEDS: VALSARTAN 80 MG TABLET PO SCH (21:09)
[2022-01-08] MEDS: ATORVASTATIN 40 MG TABLET PO SCH (21:09)
[2022-01-08] MEDS: SENNOSIDES/DOCUSATE SODIUM 1 TAB TABLET PO SCH (21:09)
--- NOTE | 2022-01-08 21:30 | NUR ---
RN NOTES; PT COMPLAINED OF GEN,BODY PAIN 09/30.PRN NORCO 10-325MG PO WAS GIVEN.NO A/R NOTED.
[2022-01-08] MEDS: ACETAMINOPHEN 325 MG TABLET PO PRN (23:15)
[2022-01-09] MEDS: HYDROCODONE/APAP 10/325MG TABLET PO PRN ×4 (02:09→17:08)
--- NOTE | 2022-01-09 02:09 | NUR ---
RN NOTES; PT COMPLAINED OF GEN,BODY PAIN 09/30.PRN NORCO 10-325MG PO WAS GIVEN.NO A/R NOTED.
[2022-01-09] MEDS: CLONIDINE HCL 0.1 MG TABLET PO SCH ×4 (05:53→23:44)
--- NOTE | 2022-01-09 06:16 | NUR ---
RN CLOSING NOTES; PT IN BED AAOX3,ABLE TO VERBALIZE NEEDS,REGGIE WELL ON RM AIR,NO SIGN SOB/DISTRESS NOTED,NO COMPLAINED OF PAIN/DISCOMFORT DURING SHIFT,DUE MEDS GIVEN ORDER,ALL NEEDS ATTENDED,IV ACCESSS ON WARREN ML SL AND LEFT AV FISTULA,SAFETY MEASURE INPLACE,CALL LIGHT WITHIN REACH,WILL ENDORSED TO NEXT SHIFT. Addendum: 01/09/22 at 0622 by THEO NÚÑEZ RN MS RN OPENING NOTE; PT IN BED AWAKE AND RESTING IN BED.AOX3,ABLE TO MAKE NEEDS KNOWN. PT ON RA TOLERATING WELL. NO SOB/DISTRESS NOTED.PT REFUSED IV REINSERTION,DUE MEDS GIVEN ORDERED,ALL NEEDS ATTENDED,SAFETY MEASURES IN PLACE: BED IN LOWEST AND LOCKED POSITION, SIDE RAILS UPX2, BED ALARM ON, AND CALL LIGHT WITHIN REACH. WILL ENDORSED TO NEXT SHIFT.
--- NOTE | 2022-01-09 06:51 | NUR ---
RN NOTES; PT REFUSED TO BE CHANGE THIS MORNING,HE STATED HIS NOT WET AND CLEANED.
--- NOTE | 2022-01-09 07:30 | NUR ---
RN Receiving Report PT AOx4 able to express his own concerns. Patient complains of pain and refuses services such as blood draw. Patient does not wish to get an IV, wants to postponed all services for tomorrow. Educated patient on importance of following physicians orders. Patient agreed on IV medication, but does not want the IV connected throughout the shift. Discussed plan of care with patient he verbalized agreement. All safety precautions taken, call light and table within reach. Bed at lowest position. Will continue to monitor throughout shift and provide care as needed.
[2022-01-09 08:00] VITALS: BP 163/83
[2022-01-09] MEDS: PANTOPRAZOLE 40 MG TABLET.DR PO SCH (08:22)
[2022-01-09] MEDS: MULTIVIT W/MINERALS 1 TAB TABLET PO SCH (08:24)
[2022-01-09] MEDS: METFORMIN 500 MG TABLET PO SCH ×2 (08:24→17:08)
[2022-01-09] MEDS: ENOXAPARIN SODIUM 40 MG/0.4 ML DISP.SYRIN SQ SCH (08:24)
[2022-01-09] MEDS: FUROSEMIDE 20 MG TABLET PO SCH (08:25)
[2022-01-09] MEDS: ASCORBIC ACID 500 MG TABLET PO SCH (08:25)
[2022-01-09] MEDS: FINASTERIDE (5 MG) 5 MG TABLET PO SCH (08:27)
[2022-01-09] MEDS: AMLODIPINE BESYLATE 10 MG TABLET PO SCH (08:27)
[2022-01-09] MEDS: hydrOXYzine PAMOATE 25 MG CAPSULE PO SCH ×3 (08:27→17:08)
[2022-01-09] MEDS: METOPROLOL SUCCINATE 25 MG TAB.SR.24H PO SCH (08:28)
[2022-01-09] MEDS: MINOXIDIL (2.5MG) 2.5 MG TABLET PO SCH ×2 (08:28→17:07)
[2022-01-09] MEDS: CLOTRIMAZOLE 1% 15 GM TUBE TP SCH ×2 (08:29→17:08)
[2022-01-09] MEDS: MEROPENEM 500 MG in IV NS 0.9% 50 ML IV SCH ×2 (09:32→21:09)
[2022-01-09 09:59] LABS: CALCIUM, SERUM 9.1 mg/dL (8.5-10.1); CARBON DIOXIDE 26 mmol/L (21-32); CHLORIDE 97 mmol/L (98-107); CREATININE 1.6 mg/dL (0.6-1.3); POTASSIUM 3.9 mmol/L (3.5-5.1); SODIUM SERUM 133 mmol/L (136-145); UREA NITROGEN, BLOOD 27 mg/dL (7-18)
[2022-01-09 10:05] LABS: BASOPHILS % (AUTO) 0.1 % (0.0-2.0); EOSINOPHILS % (AUTO) 3.7 % (0.0-6.0); HEMATOCRIT 33 % (39-51); HEMOGLOBIN 10.7 g/dL (13.5-17.5); LYMPHOCYTES # (AUTO) 0.8 K/uL (0.8-4.8); MEAN CORPUSCULAR HGB CONC 33 g/dl (31.0-36.0); MEAN CORPUSCULAR VOLUME 82 fL (80-96); MONOCYTES # (AUTO) 0.4 K/uL (0.1-1.30); MONOCYTES % (AUTO) 6.7 % (2.0-12.0); NEUTROPHILS # (AUTO) 4.8 K/uL (1.8-8.9); NEUTROPHILS % (AUTO) 77.5 % (43.0-81.0); PLATELET COUNT (AUTO) 249 K/uL (150-450); WHITE BLOOD COUNT (AUTO) 6.2 K/uL (4.3-11.0)
[2022-01-09 11:08] LABS: GLUCOSE 427 mg/dL (74-106)
[2022-01-09] MEDS ORDERED: DEXTROSE 50%-WATER 50 ML DISP.SYRIN IV PRN (12:00)
[2022-01-09] MEDS: INSULIN REGULAR, HUMAN 100 UNIT/ML 3 ML VIAL SQ PRN ×2 (12:35→22:15)
[2022-01-09] MEDS: BLOOD SUGAR DIAGNOSTIC 1 EACH STRIP VI SCH ×3 (12:35→22:15)
--- NOTE | 2022-01-09 15:12 | NUR ---
Dr. Bob-Miguel Called: Asking for cardiology consult and closely monitored blood sugars.
[2022-01-09 17:00] VITALS: BP_SYST 143; BP_SYST 156; BP_DIAS 53; BP_DIAS 88
--- NOTE | 2022-01-09 18:06 | NUR ---
RN Closing Report PT AOx4 able to express his own concerns. Patient complains of all care provided, stated he does not want ot be moved or cleaned. Educated patient on ways to maintain skin integrity and the need to keep skn clean, dry and the need to repostion. PAtietn refused to be repositioned. All safety precautions taken, call light and table within reach. Bed at lowest position. Will continue to monitor throughout shift and provide care as needed.
[2022-01-09] MEDS: *INSULIN REGULAR(HUMULIN R)HUM 100 UNIT/ML VIAL SQ PRN (18:13)
--- NOTE | 2022-01-09 19:22 | NUR ---
MS RN OPENING NOTE RECEIVED PT IN BED AWAKE AND RESTING IN BED.AOX3,ABLE TO MAKE NEEDS KNOWN. PT ON RA TOLERATING WELL. NO SOB/DISTRESS NOTED,NO COMPLAINE ON PAIN/DISCOMFOR AT THIS TIME,IV ACCESS ON R HAND 20G,PATENT AND INTACT,SAFETY MEASURES IN PLACE: BED IN LOWEST AND LOCKED POSITION, SIDE RAILS UPX2, BED ALARM ON, AND CALL LIGHT WITHIN REACH. WILL CONTINUE TO MONITOR .
[2022-01-09] MEDS: ATORVASTATIN 40 MG TABLET PO SCH (21:10)
[2022-01-09] MEDS: TAMSULOSIN 0.4 MG CAP.SR.24H PO SCH (21:10)
[2022-01-09] MEDS: VALSARTAN 80 MG TABLET PO SCH (21:13)
[2022-01-09] MEDS: SENNOSIDES/DOCUSATE SODIUM 1 TAB TABLET PO SCH (21:16)
[2022-01-10] VITALS (8 sets, daily range): BP systolic 129–147; BP diastolic 65–86
--- NOTE | 2022-01-10 00:07 | NUR ---
RN NOTES; ANJELICA INSERTED HD CATH ON THE RIGHT NECK.REGGIE WELL,NO BLEEDING NOTED.PT MOM AND FRIEND AT THE BEDSIDE.
--- NOTE | 2022-01-10 00:08 | NUR ---
JAGDEEP NOTES; ANJELICA NEWBERRY,ORDERED STAT CHEST X-RAY.
[2022-01-10] MEDS: HYDROCODONE/APAP 10/325MG TABLET PO PRN ×4 (00:42→18:44)
[2022-01-10] MEDS: CLONIDINE HCL 0.1 MG TABLET PO SCH ×3 (05:13→17:24)
--- NOTE | 2022-01-10 06:18 | NUR ---
MS RN CLOSING NOTE;324 PT IN BED AWAKE AND RESTING IN BED.AOX3,ABLE TO MAKE NEEDS KNOWN. PT ON RA TOLERATING WELL. NO SOB/DISTRESS NOTED.IV ACCESS ON R HAND 20G SL,DUE MEDS GIVEN ORDERED,ALL NEEDS ATTENDED,SAFETY MEASURES IN PLACE: BED IN LOWEST AND LOCKED POSITION, SIDE RAILS UPX2, BED ALARM ON, AND CALL LIGHT WITHIN REACH. WILL ENDORSED TO NEXT SHIFT.
[2022-01-10] MEDS: INSULIN REGULAR, HUMAN 100 UNIT/ML 3 ML VIAL SQ PRN ×3 (06:37→17:26)
[2022-01-10] MEDS: BLOOD SUGAR DIAGNOSTIC 1 EACH STRIP VI SCH ×4 (06:44→23:49)
[2022-01-10] MEDS: PANTOPRAZOLE 40 MG TABLET.DR PO SCH (07:30)
--- NOTE | 2022-01-10 07:30 | NUR ---
RN Receiving Report. Patient AOx4, able to express his own concerns. Patient educated on importance of skin integrity and the need to use a urinal. Discussed plan of care, patient agrees. Patient shows no signs of distress or discomfort. Introduced myself and discussed plan of care with patient, patient agrees. All safety precautions taken, call light and table within reach, bed at lowest position.
[2022-01-10] MEDS: ENOXAPARIN SODIUM 40 MG/0.4 ML DISP.SYRIN SQ SCH (09:00)
[2022-01-10] MEDS: FINASTERIDE (5 MG) 5 MG TABLET PO SCH (09:00)
[2022-01-10] MEDS: AMLODIPINE BESYLATE 10 MG TABLET PO SCH (09:00)
[2022-01-10] MEDS: ASCORBIC ACID 500 MG TABLET PO SCH (09:00)
[2022-01-10] MEDS: hydrOXYzine PAMOATE 25 MG CAPSULE PO SCH ×3 (09:00→16:20)
[2022-01-10] MEDS: MINOXIDIL (2.5MG) 2.5 MG TABLET PO SCH ×2 (09:00→16:20)
[2022-01-10] MEDS: MULTIVIT W/MINERALS 1 TAB TABLET PO SCH (09:00)
[2022-01-10] MEDS: FUROSEMIDE 20 MG TABLET PO SCH (09:00)
[2022-01-10] MEDS: METFORMIN 500 MG TABLET PO SCH ×2 (09:00→16:19)
[2022-01-10] MEDS: METOPROLOL SUCCINATE 25 MG TAB.SR.24H PO SCH (09:21)
[2022-01-10] MEDS: CLOTRIMAZOLE 1% 15 GM TUBE TP SCH ×2 (09:25→16:21)
--- NOTE | 2022-01-10 09:45 | NUR ---
PreOp Surgery Medication Orders Dr. Bob/Anesthesia called, requesting to only administer Metoprolol and insulin per sliding scale.
[2022-01-10] MEDS: MEROPENEM 500 MG in IV NS 0.9% 50 ML IV SCH ×2 (09:56→20:08)
[2022-01-10] MEDS ORDERED: ANESTHESIA TRAY IN PYXIS 1 EA TRAY MC ONE (10:42)
[2022-01-10] MEDS ORDERED: LIDOCAINE HCL/MPF 1% 30 ML VIAL IJ ONE (12:25)
[2022-01-10] MEDS ORDERED: MINERAL OIL 10 ML VIAL MC ONE (12:26)
--- NOTE | 2022-01-10 12:30 | NUR ---
Surgery Transport Surgery tea, arrived to pickling grader patient. Patient AOx4, able to express his concerns. Patient agrees with procedure and wants to move forward. Vital Signs stable, blood sugar 147. All safety precautions taken patient transported out of the unit safely. Consents signed and report given to surgery department nurse.
[2022-01-10] MEDS ORDERED: ROCURONIUM BROMIDE 50 MG/5 ML ONE (12:36)
[2022-01-10] MEDS ORDERED: FENTANYL PF 100MCG/2ML AMPUL ONE (12:36)
[2022-01-10] MEDS ORDERED: LIDOCAINE MPF 1%-EPI 1:200,000 30 ML VIAL IJ ONE (13:30)
[2022-01-10] MEDS ORDERED: BUPIVACAINE 0.5 % PF 150 MG/30 ML VIAL ONE (13:31)
--- NOTE | 2022-01-10 15:40 | NUR ---
Post Surgery Note Patient returned from Surgery, report provided. Vital signs stable no signs of distress patient able to express his own concerns. Patient states he has no pain or discomfort. All safety precautions taken. Total of 5 surgery strips in face and head, clean, dry and intact. Patient states he is sleepy and would like to get some rest. Will continue to monitor and follow parameters.
--- NOTE | 2022-01-10 18:39 | NUR ---
RN Closing Report Patient AOx4 able to express his own concerns. Patient remained safe throughout shift, all safety precautions taken.Medications administered as ordered by physician considering scheduled surgery. Patient educated on importance of maintaining skin integrity and the need to use the urinal. Patient refuses to be repositioned, states he has been dealing with his physical condition for long enough and he knows best. Call light and table within reach, bed at lowest position. Will endorse report to night nurse for continuity of care.
--- NOTE | 2022-01-10 19:40 | NUR ---
MS RN OPENING NOTE RECEIVED PATIENT IN BED; AWAKE, ALERT AND ORIENTED X 3-4. BREATHING EVEN AND NONLABORED. ON ROOM AIR; TOLERATING WELL. NOT IN ANY FORM OF RESPIRATORY DISTRESS. DENIES ANY PAIN OR DISCOMFORT AT THIS TIME. WITH IV ACCESS ON RIGHT HAND 20g; PATENT, INTACT AND SALINE LOCKED. ABLE TO MAKE NEEDS KNOWN. SAFETY MEASURES IMPLEMENTED: CALL LIGHT AND TABLE WITHIN REACH, SIDE RAILS UP X 3, BED IN LOWEST LOCKED POSITION. WILL CONTINUE PLAN OF CARE.
[2022-01-10] MEDS: TAMSULOSIN 0.4 MG CAP.SR.24H PO SCH (22:58)
[2022-01-10] MEDS: SENNOSIDES/DOCUSATE SODIUM 1 TAB TABLET PO SCH (22:58)
[2022-01-10] MEDS: ATORVASTATIN 40 MG TABLET PO SCH (22:58)
[2022-01-10] MEDS: VALSARTAN 80 MG TABLET PO SCH (22:58)
[2022-01-11] MEDS: *INSULIN REGULAR(HUMULIN R)HUM 100 UNIT/ML VIAL SQ PRN ×2 (00:27→21:38)
--- NOTE | 2022-01-11 00:27 | NUR ---
RN NOTE [id number] MG/DL. 6 UNITS OF INSULIN GIVEN SQ ORDERED PER SLIDING SCALE; WILL CONTINUE TO MONITOR.
[2022-01-11] MEDS: HYDROCODONE/APAP 10/325MG TABLET PO PRN ×3 (00:39→21:35)
[2022-01-11] MEDS: CLONIDINE HCL 0.1 MG TABLET PO SCH ×4 (00:39→17:28)
--- NOTE | 2022-01-11 00:39 | NUR ---
RN NOTE PT C/O FACIAL PAIN 7/10 PAIN SCALE. PRN HYDROCODONE 10/325 MG GIVEN PO ORDERED; WILL CONTINUE TO MONITOR AND REASSESS PT.
[2022-01-11] MEDS: INSULIN REGULAR, HUMAN 100 UNIT/ML 3 ML VIAL SQ PRN ×3 (06:52→17:34)
--- NOTE | 2022-01-11 07:00 | NUR ---
MS RN OPENING NOTES PATIENT LAYING IN BED, A/O X 3, FORGETFUL, ABLE TO MAKE NEEDS KNOWN. TOLERATING WELL ON ROOM AIR WITH NO S/S RESPIRATORY DISTRESS. NO COMPLAINTS OF PAIN OR DISCOMFORT AT THIS TIME. R HAND # 20 G SL CLEAN, INTACT, AND FLUSHING WELL. SAFETY MEASURES IN PLACE: BED IN LOWEST LOCKED POSITION, SIDE RAILS UP X 2, CALL LIGHT WITHIN REACH. WILL CONTINUE TO MONITOR.
--- NOTE | 2022-01-11 07:00 | NUR ---
MS RN CLOSING NOTE PATIENT IN BED; AWAKE, A/O X 3-4. RESPIRATION EVEN AND NONLABORED. STABLE ON ROOM AIR. NOT IN ANY FORM OF RESPIRATORY DISTRESS. DENIES ANY PAIN OR DISCOMFORT AT THIS TIME. WITH IV ACCESS ON RIGHT HAND 20g; PATENT, INTACT AND SALINE LOCKED. ABLE TO MAKE NEEDS KNOWN. SAFETY MEASURES IN PLACE: CALL LIGHT AND TABLE WITHIN REACH, SIDE RAILS UP X 3, BED IN LOWEST LOCKED POSITION. ENDORSED TO MORNING SHIFT FOR WINNIE.
[2022-01-11] MEDS: BLOOD SUGAR DIAGNOSTIC 1 EACH STRIP VI SCH ×4 (07:39→21:23)
[2022-01-11] MEDS: PANTOPRAZOLE 40 MG TABLET.DR PO SCH (07:45)
[2022-01-11] MEDS: ENOXAPARIN SODIUM 40 MG/0.4 ML DISP.SYRIN SQ SCH (08:33)
[2022-01-11] MEDS: ASCORBIC ACID 500 MG TABLET PO SCH (08:34)
[2022-01-11] MEDS: hydrOXYzine PAMOATE 25 MG CAPSULE PO SCH ×4 (08:34→17:28)
[2022-01-11] MEDS: MULTIVIT W/MINERALS 1 TAB TABLET PO SCH (08:34)
[2022-01-11] MEDS: FUROSEMIDE 20 MG TABLET PO SCH (08:35)
[2022-01-11] MEDS: MINOXIDIL (2.5MG) 2.5 MG TABLET PO SCH ×2 (08:36→17:28)
[2022-01-11] MEDS: AMLODIPINE BESYLATE 10 MG TABLET PO SCH (08:36)
[2022-01-11] MEDS: METOPROLOL SUCCINATE 25 MG TAB.SR.24H PO SCH (08:36)
[2022-01-11] MEDS: FINASTERIDE (5 MG) 5 MG TABLET PO SCH (08:36)
[2022-01-11] MEDS: METFORMIN 500 MG TABLET PO SCH ×2 (08:36→17:27)
[2022-01-11] MEDS: MEROPENEM 500 MG in IV NS 0.9% 50 ML IV SCH ×2 (08:37→20:44)
[2022-01-11] MEDS: CLOTRIMAZOLE 1% 15 GM TUBE TP SCH ×2 (08:37→17:29)
[2022-01-11 08:45] VITALS: BP 165/72
[2022-01-11 16:37] VITALS: BP 128/82
--- NOTE | 2022-01-11 18:59 | NUR ---
MS RN CLOSING NOTES PATIENT LAYING IN BED, A/O X 3, [place], ABLE TO MAKE NEEDS KNOWN. TOLERATING WELL ON ROOM AIR WITH NO S/S RESPIRATORY DISTRESS. NO COMPLAINTS OF PAIN OR DISCOMFORT AT THIS TIME. R HAND # 20 G SL CLEAN, INTACT, AND FLUSHING WELL. SAFETY MEASURES IN PLACE: BED IN LOWEST LOCKED POSITION, SIDE RAILS UP X 2, CALL LIGHT WITHIN REACH. ALL NEEDS MET. WILL ENDORSE TO TELECOMMUNICATION TOWER TECHNICIAN FOR WINNIE.
--- NOTE | 2022-01-11 19:30 | NUR ---
MS RN OPENING NOTES RECEIVED PATIENT LYING IN BED, HOB ELEVATED. A/O X3, [place], CAN HEAR BETTER ON HIS LEFT EAR. BREATHING EVEN AND NON-LABORED ON ROOM AIR. NOT IN APPARENT DISTRESS. DENIES PAIN AT THIS TIME. DISTENDED ABDOMEN NOTED. HAS RIGHT HAND IV ACCESS #20G AND SALINE LOCKED. ORIENTED PATIENT TO CARE TEAM. SAFETY MEASURES IN PLACE: BED LOCKED AND IN LOWEST POSITION, SIDE RAILS UP x2, CALL LIGHT WITHIN REACH. WILL CONTINUE POC.
[2022-01-11 20:00] VITALS: BP 139/76
[2022-01-11] MEDS: ATORVASTATIN 40 MG TABLET PO SCH (21:08)
[2022-01-11] MEDS: SENNOSIDES/DOCUSATE SODIUM 1 TAB TABLET PO SCH (21:08)
[2022-01-11] MEDS: TAMSULOSIN 0.4 MG CAP.SR.24H PO SCH (21:08)
[2022-01-11] MEDS: VALSARTAN 80 MG TABLET PO SCH (21:08)
--- NOTE | 2022-01-11 21:40 | NUR ---
MS RN NOTES PATIENT C/O CHRONIC GENERALIZED PAIN 08/31 AND REQUESTED PRN NORCO. ADMINISTERED AND TOLERATED WELL.
[2022-01-12] MEDS: CLONIDINE HCL 0.1 MG TABLET PO SCH ×4 (00:29→17:04)
[2022-01-12] MEDS: MORPHINE SULFATE INJ 2 MG/ML DISP.SYRIN IV PRN (01:08)
--- NOTE | 2022-01-12 01:10 | NUR ---
MS RN NOTES PATIENT C/O GENERALIZED PAIN 12/01. ADMINISTERED PRN MORPHINE. WILL CONTINUE TO MONITOR.
--- NOTE | 2022-01-12 02:27 | NUR ---
MS RN NOTES PATIENT'S IV ACCESS IS INFILTRATED, LEAKING NOTED. PATIENT REFUSED TO REMOVE IT AND RE-INSERT, VERBALIZED HE WANTS IT DONE TOMORROW MORNING.
[2022-01-12] MEDS: HYDROCODONE/APAP 10/325MG TABLET PO PRN ×3 (05:20→17:24)
--- NOTE | 2022-01-12 05:30 | NUR ---
MS RN NOTES PATIENT REQUESTED PRN NORCO FOR HIS CHRONIC GENERALIZED PAIN. VERBALIZED HIS NECK IS HURTING MORE. ADMINISTERED MEDICATION AND PLACED ANOTHER PILLOW UNDER HIS HEAD.
--- NOTE | 2022-01-12 06:54 | NUR ---
MS RN CLOSING NOTES PATIENT LYING IN BED ASLEEP, EASY TO AROUSE. A/O X3, HEARING BETTER ON LEFT EAR. NO SOB OR NOTED, TOLERATING ROOM AIR WELL. NOT IN ACUTE DISTRESS. NO PAIN NOTED. AFEBRILE. REMOVED INFILTRATED IV AND REFUSED IV RE-INSERTION OF THIS TIME. PERINEAL CARE RENDERED. ALL DUE MEDS GIVEN AND NEEDS ATTENDED. SAFETY MEASURES MAINTAINED. WILL ENDORSE TO NEXT SHIFT FOR WINNIE.
[2022-01-12 07:00] VITALS: BP 150/81
[2022-01-12] MEDS: BLOOD SUGAR DIAGNOSTIC 1 EACH STRIP VI SCH ×4 (07:03→21:52)
[2022-01-12] MEDS: INSULIN REGULAR, HUMAN 100 UNIT/ML 3 ML VIAL SQ PRN ×3 (07:07→16:54)
--- NOTE | 2022-01-12 07:25 | NUR ---
MS RN OPENING NOTES RECEIVED PATIENT LYING IN BED, HOB ELEVATED. A/O X3, [place], CAN HEAR BETTER ON HIS LEFT EAR. NO SOB OR DISTRESS NOTED . NO C/O OF PAIN AT THIS TIME. DISTENDED ABDOMEN NOTED. NO IV ACCESS NOTED PER NIGHT NURSE PATIENT REFUSED TO BE INSERTED . SAFETY MEASURES IN PLACE: BED LOCKED AND IN LOWEST POSITION, SIDE RAILS UP x2, CALL LIGHT WITHIN REACH. WILL CONTINUE POC.
[2022-01-12] MEDS: PANTOPRAZOLE 40 MG TABLET.DR PO SCH (08:06)
[2022-01-12] MEDS: METFORMIN 500 MG TABLET PO SCH ×2 (08:32→17:03)
[2022-01-12] MEDS: MINOXIDIL (2.5MG) 2.5 MG TABLET PO SCH ×2 (08:33→17:02)
[2022-01-12] MEDS: ASCORBIC ACID 500 MG TABLET PO SCH (08:33)
[2022-01-12] MEDS: MULTIVIT W/MINERALS 1 TAB TABLET PO SCH (08:33)
[2022-01-12] MEDS: FUROSEMIDE 20 MG TABLET PO SCH (08:33)
[2022-01-12] MEDS: METOPROLOL SUCCINATE 25 MG TAB.SR.24H PO SCH (08:34)
[2022-01-12] MEDS: AMLODIPINE BESYLATE 10 MG TABLET PO SCH (08:34)
[2022-01-12] MEDS: FINASTERIDE (5 MG) 5 MG TABLET PO SCH (08:34)
[2022-01-12] MEDS: hydrOXYzine PAMOATE 25 MG CAPSULE PO SCH ×3 (08:35→17:00)
[2022-01-12] MEDS: ENOXAPARIN SODIUM 40 MG/0.4 ML DISP.SYRIN SQ SCH (08:41)
[2022-01-12] MEDS: MEROPENEM 500 MG in IV NS 0.9% 50 ML IV SCH ×2 (09:57→21:29)
[2022-01-12] MEDS: CLOTRIMAZOLE 1% 15 GM TUBE TP SCH ×2 (09:58→17:17)
--- NOTE | 2022-01-12 10:00 | NUR ---
RN NOTES PATIENT INSERTED A NEW IV ACCCESS ON THE LEFT FOREARM G# 22 AND WITH GOOD BLOOD FLOW , SECURED WITH , IV ATB GIVEN ORDERED
--- NOTE | 2022-01-12 12:15 | NUR ---
MS RN OPENING NOTES RECEIVED PATIENT LYING IN BED, HOB ELEVATED. A/O X3, [place], CAN HEAR BETTER ON HIS LEFT EAR. NO SOB OR DISTRESS NOTED . NO C/O OF PAIN AT THIS TIME. DISTENDED ABDOMEN NOTED. NO IV ACCESS NOTED PER NIGHT NURSE PATIENT REFUSED TO BE INSERTED . SAFETY MEASURES IN PLACE: BED LOCKED AND IN LOWEST POSITION, SIDE RAILS UP x2, CALL LIGHT WITHIN REACH. WILL CONTINUE POC. Addendum: 01/12/22 at 1843 by ELAINE HELM RN DUPLICATE DOCUMENTATION IN OEPNING NOTES ON 724
[2022-01-12 16:00] VITALS: BP 125/71
--- NOTE | 2022-01-12 18:44 | NUR ---
MS RN CLOSING NOTES PATIENT LYING IN BED, HOB ELEVATED. A/O X3, [place], CAN HEAR BETTER ON HIS LEFT EAR. NO SOB OR DISTRESS NOTED . C/O OF PAIN AND DISCOMFORT AND NORCO GIVEN ORDERED AND WITH HELP . DISTENDED ABDOMEN NOTED. NO IV ACCESS INSERTED ON LEFT FOREARM #22 G AND GOOD BLOOD FLOW , ALL DUE MEDS GIVEN ORDERED , BLOOD SUGAR WAS CHECKED AND INSULIN COVERAGE GIVEN ORDERED . SAFETY MEASURES IN PLACE: BED LOCKED AND IN LOWEST POSITION, SIDE RAILS UP x2, CALL LIGHT WITHIN REACH. WILL ENDORSED TO NEXT SHIFT .
--- NOTE | 2022-01-12 19:30 | NUR ---
MS RN OPENING NOTE RECEIVED PT IN BED WITH EYES CLOSED, RESPONSIVE TO VERBAL STIMULI. A/O X4 AND ABLE TO MAKE NEEDS KNOWN. PT STABLE ON ROOM SIR. NO SOB OR S/S OF RESPIRATORY DISTRESS. BREATHING EVEN AND UNLABORED. IV ACCESS LFA 22G SL, INTACT AND PATENT. SAFETY PRECAUTIONS IN PLACE. BED IN LOWEST LOCKED POSITION, HOB ELEVATED, SIDE RAILS UP X2, AND CALL LIGHT AND TABLE WITHIN REACH. ALL NEEDS MET AT THIS TIME.
[2022-01-12 20:00] VITALS: BP 124/70
[2022-01-12] MEDS: ATORVASTATIN 40 MG TABLET PO SCH (21:29)
[2022-01-12] MEDS: SENNOSIDES/DOCUSATE SODIUM 1 TAB TABLET PO SCH (21:29)
[2022-01-12] MEDS: TAMSULOSIN 0.4 MG CAP.SR.24H PO SCH (21:29)
[2022-01-12] MEDS: VALSARTAN 80 MG TABLET PO SCH (21:30)
[2022-01-12] MEDS: *INSULIN REGULAR(HUMULIN R)HUM 100 UNIT/ML VIAL SQ PRN (21:53)
--- NOTE | 2022-01-12 21:53 | NUR ---
RN NOTE PT BS 224. SUPPOSED TO RECEIVED 4 U OF INSULIN BUT PT IS REFUSING AT THIS TIME. EXPLAINED RISKS, PT VERBALIZED UNDERSTANDING, AND PT STILL REFUSED. CHARGE NURSE DEYSI RM.
[2022-01-13] MEDS: CLONIDINE HCL 0.1 MG TABLET PO SCH ×3 (00:25→11:25)
[2022-01-13] MEDS: BLOOD SUGAR DIAGNOSTIC 1 EACH STRIP VI SCH ×2 (06:40→11:59)
[2022-01-13] MEDS: INSULIN REGULAR, HUMAN 100 UNIT/ML 3 ML VIAL SQ PRN ×2 (06:43→11:56)
[2022-01-13] MEDS: HYDROCODONE/APAP 10/325MG TABLET PO PRN (06:45)
--- NOTE | 2022-01-13 07:00 | NUR ---
MS RN OPENING NOTES PATIENT LAYING IN BED, A/O X 3, ABLE TO MAKE NEEDS KNOWN, TOLERATING WELL ON ROOM AIR WITH NO S/S RESPIRATORY DISTRESS. NO COMPLAINTS OF PAIN OR DISCOMFORT AT THIS TIME. L FA # 22 G SL CLEAN, INTACT, AND FLUSHING WELL. SAFETY MEASURES IN PLACE: BED IN LOWEST LOCKED POSITION, SIDE RAILS UP X 2, CALL LIGHT WITHIN REACH. WILL CONTINUE TO MONITOR.
--- NOTE | 2022-01-13 07:07 | NUR ---
RN NOTE PT COMPLAINING OF GENERALIZED PAIN 09/30. ADMINISTERED NORCO 10-325 MG FOR PAIN ORDERED. MADE COMFORTABLE IN BED. ALL NEEDS MET AT THIS TIME.
--- NOTE | 2022-01-13 07:08 | NUR ---
MS RN CLOSING NOTE PT IN BED AWAKE. A/O X4 AND ABLE TO MAKE NEEDS KNOWN. PT STABLE ON ROOM AIR. NO SOB OR S/S OF RESPIRATORY DISTRESS. BREATHING EVEN AND UNLABORED. IV ACCESS LFA 22G SL, INTACT AND PATENT. ALL DUE MEDS GIVEN ORDERED. SAFETY PRECAUTIONS IN PLACE AT ALL TIMES. BED IN LOWEST LOCKED POSITION, HOB ELEVATED, SIDE RAILS UP X2, AND CALL LIGHT AND TABLE WITHIN REACH. ALL NEEDS MET AT THIS TIME AND WILL ENDORSE TO ONCOMING NURSE FOR WINNIE.
[2022-01-13] MEDS: PANTOPRAZOLE 40 MG TABLET.DR PO SCH (07:49)
[2022-01-13] MEDS: FUROSEMIDE 20 MG TABLET PO SCH (08:58)
[2022-01-13] MEDS: ASCORBIC ACID 500 MG TABLET PO SCH (08:59)
[2022-01-13] MEDS: METFORMIN 500 MG TABLET PO SCH (08:59)
[2022-01-13] MEDS: AMLODIPINE BESYLATE 10 MG TABLET PO SCH (08:59)
[2022-01-13] MEDS: MINOXIDIL (2.5MG) 2.5 MG TABLET PO SCH (08:59)
[2022-01-13] MEDS: FINASTERIDE (5 MG) 5 MG TABLET PO SCH (08:59)
[2022-01-13] MEDS: MULTIVIT W/MINERALS 1 TAB TABLET PO SCH (08:59)
[2022-01-13] MEDS: METOPROLOL SUCCINATE 25 MG TAB.SR.24H PO SCH (08:59)
[2022-01-13] MEDS: ENOXAPARIN SODIUM 40 MG/0.4 ML DISP.SYRIN SQ SCH (09:00)
[2022-01-13] MEDS: hydrOXYzine PAMOATE 25 MG CAPSULE PO SCH ×2 (09:00→12:03)
[2022-01-13] MEDS: CLOTRIMAZOLE 1% 15 GM TUBE TP SCH (09:00)
[2022-01-13] MEDS: MEROPENEM 500 MG in IV NS 0.9% 50 ML IV SCH (09:01)
[2022-01-13 10:24] VITALS: BP 138/76
[2022-01-13 11:25] VITALS: BP 113/52
--- NOTE | 2022-01-13 14:30 | NUR ---
MS GANNONMARSHMALLOW MACHINE WORKER NOTES PATIENT MADE AWARE OF MD DISCHARGE ORDER AND INSTRUCTIONS. PATIENT VERBALIZED UNDERSTANDING OF MD DISCHARGE INSTRUCTIONS AND SIGNED DISCHARGE INSTRUCTIONS SHEET. PATIENT ALSO VERBALIZED POSSESSION OF ALL BELONGINGS AND SIGNED BELONGINGS LIST. IV LINE AND ID BAND REMOVED. REPORT CALLED TO TEE AT [facility]. PATIENT TRANSPORTED FROM UNIT ACCOMPANIED BY 2 PEDIATRIC PHYSIATRIST. ALL DISCHARGE PAPERWORK PROVIDED TO TRANSPORTATION. PATIENT DISCHARGED FROM HOSPITAL IN STABLE CONDITION. PATIENT REFUSED WOUND PHOTOGRAPHS AT DISCHARGE. Addendum: 01/13/22 at 1518 by JONO HAWK RN PATIENT AND JAGDEEP OLIVEIRA MADE AWARE OF APPOINTMENT AT [facility] CL[facility] TOMORROW 01/14
== END 2022-01-13 14:50 | DRG 951 ==
LOC: ER 02:28 → MED 10:41
PROC: 0D9N8ZZ Drainage of Sigmoid Colon, Via Natural or Artificial Opening Endoscopic (ICD-10-PCS; principal; 2022-01-02)
PROC: 0JB10ZX Excision of Face Subcutaneous Tissue and Fascia, Open Approach, Diagnostic (ICD-10-PCS; 2022-01-04)
PROC: 0JB10ZX Excision of Face Subcutaneous Tissue and Fascia, Open Approach, Diagnostic (ICD-10-PCS; 2022-01-08)
PROC: 0KB10ZZ Excision of Facial Muscle, Open Approach (ICD-10-PCS; 2022-01-10)
PROC: 0JB10ZZ Excision of Face Subcutaneous Tissue and Fascia, Open Approach (ICD-10-PCS; 2022-01-10)
PROC: 0KX10ZZ Transfer Facial Muscle, Open Approach (ICD-10-PCS; 2022-01-10)
DX: K56.2 Volvulus (principal); N17.0 Acute kidney failure with tubular necrosis; D68.59 Other primary thrombophilia; I13.0 Hypertensive heart and chronic kidney disease with heart failure and stage 1 through stage 4 chronic kidney disease, or unspecified chronic kidney disease; D63.8 Anemia in other chronic diseases classified elsewhere; I50.9 Heart failure, unspecified; E87.1 Hypo-osmolality and hyponatremia; C44.319 Basal cell carcinoma of skin of other parts of face; N39.0 Urinary tract infection, site not specified; B96.20 Unspecified Escherichia coli [E. coli] as the cause of diseases classified elsewhere; J90 Pleural effusion, not elsewhere classified; E86.1 Hypovolemia; J98.11 Atelectasis; Z20.822 Contact with and (suspected) exposure to COVID-19; I25.10 Atherosclerotic heart disease of native coronary artery without angina pectoris; Z95.1 Presence of aortocoronary bypass graft; N40.0 Benign prostatic hyperplasia without lower urinary tract symptoms; E11.22 Type 2 diabetes mellitus with diabetic chronic kidney disease; E78.5 Hyperlipidemia, unspecified; Z79.01 Long term (current) use of anticoagulants; Z79.4 Long term (current) use of insulin; Z79.899 Other long term (current) drug therapy; N18.9 Chronic kidney disease, unspecified; Z68.38 Body mass index [BMI] 38.0-38.9, adult; E66.9 Obesity, unspecified; Z90.49 Acquired absence of other specified parts of digestive tract; Z96.643 Presence of artificial hip joint, bilateral; Z87.442 Personal history of urinary calculi; M48.10 Ankylosing hyperostosis [Forestier], site unspecified; Z16.12 Extended spectrum beta lactamase (ESBL) resistance; Z74.09 Other reduced mobility; E87.6 Hypokalemia; R23.9 Unspecified skin changes; L57.0 Actinic keratosis; C44.329 Squamous cell carcinoma of skin of other parts of face
CPT/HCPCS: 36415; 45330; 71045-TC; 73501; 80048-TC; 80061-TC; 80076-TC; 81001; 82962-TC; 83690-TC; 83735-TC; 84100-TC; 84443-TC; 84484-TC; 85025-TC; 85610-TC; 85730-TC; 87081-TC; 87086-TC; 87186-TC; 97530-TC; A4217; A4349; A6209; C9113; C9803; G0378; J0330; J0360; J0690; J1100; J1650; J1815; J1885; J2185; J2270; J2405; J2543; J2704; J3010; J3490; J7030; J7040; J7050; J7060; Q0177

== ENCOUNTER 2022-05-19 15:57 | Inpatient (IN) | payer MEDICARE, OTHER ==
[~2022-05-19] VITALS: Ht 193 cm; Wt 131.5 kg
[2022-05-19] VITALS: BP 114/54
[~2022-05-19 15:57] MED LIST changes: +ACET-868 PO; +ASPI-1169 PO; +CALC500T13 PO; +CHOL400T58 PO; +DIPH25CA51 PO; +DOCU-141 PO; +FAMO20TA8 PO; +GLUC1KIT SQ; +HYDR-3980 PO; +IBUP-1955 PO; +INSU100V42 SQ; +MAGN400O6 PO; +METF-440 PO; +ONDA4TAB11 SL; +POLY17PO4 PO; +SENN-261 PO; -SENN1TAB77 PO
--- NOTE | 2022-05-19 16:00 | NUR ---
Patient c/c fever, A/O x 3
[2022-05-19] MEDS ORDERED: VANCOMYCIN 1 GM in IV D5W 250 ML IV ONE (16:30)
[2022-05-19] MEDS ORDERED: CEFEPIME 1 GM in IV D5W 50 ML IV ONE (16:30)
[2022-05-19] MEDS ORDERED: AMMO225L14 TP (16:46)
[2022-05-19] MEDS ORDERED: POTA20TA83 PO (16:46)
[2022-05-19] MEDS ORDERED: GLUC1AUT SQ (16:46)
[2022-05-19] MEDS ORDERED: NEOM1OIN15 TP (16:46)
[2022-05-19] MEDS ORDERED: CLOT15CR27 TP (16:46)
[2022-05-19] MEDS ORDERED: DIVA-76 PO (16:46)
[2022-05-19] MEDS ORDERED: ALLA266C2 TP (16:46)
[2022-05-19] MEDS ORDERED: NITR0.4T48 SL (16:46)
[2022-05-19] MEDS ORDERED: ZOLP5TAB8 PO (16:46)
[2022-05-19] MEDS ORDERED: ATOR40TA PO (16:46)
[2022-05-19] MEDS ORDERED: NYST15OI TP (16:46)
[2022-05-19] MEDS ORDERED: HYDR28.32 TP (16:46)
--- NOTE | 2022-05-19 16:59 | NUR ---
COVID SWAB OBTAINED
--- NOTE | 2022-05-19 17:02 | NUR ---
MOVE SHEET SUBMITTED.
--- NOTE | 2022-05-19 17:08 | NUR ---
BLOOD SAMPLES OBTAINED
[2022-05-19 17:40] LABS: BASOPHILS # (AUTO) 0.3 K/uL (0.0-0.2); BASOPHILS % (AUTO) 1.5 % (0.0-2.0); EOSINOPHILS % (AUTO) 0.2 % (0.0-6.0); HEMATOCRIT 36 % (39-51); HEMOGLOBIN 11.1 g/dL (13.5-17.5); LYMPHOCYTES # (AUTO) 0.3 K/uL (0.8-4.8); LYMPHOCYTES % (AUTO) 1.9 % (20.0-44.0); MEAN CORPUSCULAR HGB CONC 31 g/dl (31.0-36.0); MEAN CORPUSCULAR VOLUME 81 fL (80-96); MONOCYTES # (AUTO) 0.9 K/uL (0.1-1.30); MONOCYTES % (AUTO) 5.2 % (2.0-12.0); NEUTROPHILS # (AUTO) 15.9 K/uL (1.8-8.9); NEUTROPHILS % (AUTO) 91.2 % (43.0-81.0); PLATELET COUNT (AUTO) 269 K/uL (150-450); WHITE BLOOD COUNT (AUTO) 17.4 K/uL (4.3-11.0)
[2022-05-19 17:49] LABS: CALCIUM, SERUM 8.9 mg/dL (8.5-10.1); CARBON DIOXIDE 25 mmol/L (21-32); CHLORIDE 99 mmol/L (98-107); CREATININE 1.7 mg/dL (0.6-1.3); GLUCOSE 271 mg/dL (74-106); POTASSIUM 3.3 mmol/L (3.5-5.1); SODIUM SERUM 135 mmol/L (136-145); UREA NITROGEN, BLOOD 27 mg/dL (7-18)
[2022-05-19 17:55] LABS: ALKALINE PHOSPHATASE 72 U/L (46-116); ASPARTATE AMINOTRANSFERASE 15 U/L (15-37); BILIRUBIN,DIRECT 0.2 mg/dL (0.0-0.2); BILIRUBIN,TOTAL 0.6 mg/dL (0.2-1.0); TOTAL PROTEIN, SERUM 8.6 g/dL (6.4-8.2)
--- NOTE | 2022-05-19 18:07 | NUR ---
Patient unable to produce urine at this time (s/p two espinoza cath insertions)
[2022-05-19] MEDS ORDERED: ACETAMINOPHEN ES 500 MG TABLET ONE (18:18)
[2022-05-19] MEDS ORDERED: IV NS 0.9% 1,000 ML IV ONE (18:30)
[2022-05-19] MEDS ORDERED: ACETAMINOPHEN ES 500 MG TABLET PO ONE (18:30)
[2022-05-19 18:31] LABS: ALANINE AMINOTRANSFERASE < 6 U/L (12-78)
--- NOTE | 2022-05-19 19:15 | NUR ---
COVID + PER LAB. DR DINH AWARE
--- NOTE | 2022-05-19 20:06 | NUR ---
PT IS ALERT AND ORINETED. RR EVEN AND NON LABORED. CONNECTED TO POX AND HEART MONITOR. VSS
--- NOTE | 2022-05-19 20:07 | NUR ---
PT REFUSED BLOOD WORK, EXPLAINED BENEFITS VERSUS RISK. MADE AWARE
--- NOTE | 2022-05-19 20:10 | NUR ---
PT REFUSED INFLUENZA AND RSV SWAB, AWARE
--- NOTE | 2022-05-19 20:53 | NUR ---
REPORT GIVEN TO SARMAD GANNON FOR WINNIE
[2022-05-19] MEDS ORDERED: ONDANSETRON HCL/PF 4 MG/2 ML VIAL IVP PRN (21:30)
--- NOTE | 2022-05-19 21:40 | NUR ---
PT TRANSFERRED TO [facility], ACLS PROTOCOLS ACTIVATED
--- NOTE | 2022-05-19 21:45 | NUR ---
MIXER OPERATORFIELD TECHNICAL SPECIALIST NOTES - RECEIVED PATIENT FROM ED [facility]IA [facility] AT 2145 WITH PRIMARY DX OF SEPSIS PATIENT IS A/O X4, BREATHING IS EVEN AND NON-LABORED BUT WITH SOME SHORTNESS OF BREATH. ON O2 AT 2LPM VIA NASAL CANULA. NOT IN APPARENT DISTRESS. HAS LEFT HAND IV ACCESS #22G AND SALINE LOCKED. NO S/S OF INFILTRATION NOTED. PATIENT IS BB, SKIN ASSESSMENT DONE, PICTURES TAKEN AND PLACED ON CHART, VS TAKEN AND RECORDED. ORIENTED PATIENT TO UNIT AND STAFF. SAFETY PRECAUTIONS IN PLACE: BED LOCKED AND IN LOW POSITION, SIDE RAILS UP X2, CALL LIGHT WITHIN REACH. WILL CONTINUE PLAN OF CARE.
[2022-05-19] MEDS: AZITHROMYCIN 500 MG in IV D5W 250 ML IV SCH ×2 (22:00→22:46)
[2022-05-19] MEDS: POTASSIUM CL. PREMIX PERIPHER. 50 ML IV SCH ×3 (22:29→23:12)
[2022-05-19] MEDS ORDERED: AZITHROMYCIN 500 MG VIAL ONE (22:34)
[2022-05-19] MEDS: DEXAMETHASONE SOD PHOSPHATE 10 MG/ML VIAL IV SCH (23:12)
[2022-05-20] VITALS: BP 114/54
[2022-05-20] MEDS ORDERED: CALCIUM CARBONATE 500 MG TAB.CHEW PO PRN
[2022-05-20] MEDS ORDERED: ZOLPIDEM TARTRATE 5 MG TABLET PO PRN
[2022-05-20] MEDS ORDERED: DEXTROSE 50%-WATER 50 ML DISP.SYRIN IV PRN
--- NOTE | 2022-05-20 | NUR ---
RN NOTE PT IV ACCESS GOT INFILTRATED. ADMINISTERED 1 BAG OF KCL ONLY. SCHEDULED AZITHROMYCIN AND KCL 10 MEQ PUT ON HOLD. TRIED TO OBTAIN NEW IV ACCESS, PT REFUSED. EXPLAINED ABOUT THE IMPORTANCE OF OBTAINING NEW LINE FOR SCHEDULED ABX AND KCL, PT STILL REFUSED, VERBALIZED "JUST LET IT BE, GO AWAY I DON'T WANNA BE POKED AGAIN. INDUSTRIAL HEALTH ENGINEER MADE AWARE. ORDERED TO OBTAIN MIDLINE IN AM. CN AWARE.
[2022-05-20 04:00] VITALS: BP 135/70
--- NOTE | 2022-05-20 06:53 | NUR ---
RN NOTES PATIENT REMAINS IN BED, PT IS A/O X4 HARD OF HEARING, BREATHING IS EVEN AND NON-LABORED ON O2 AT 2LPM VIA NASAL CANULA. NOT IN APPARENT DISTRESS. HAS LEFT HAND IV ACCESS #22G SALINE LOCKED. KEPT PT NPO EXCEPT MEDS, [place] IN PLACED, SAFETY PRECAUTIONS IN PLACE: BED LOCKED AND IN LOW POSITION, SIDE RAILS UP X2, CALL LIGHT WITHIN REACH. PT REFUSED AM LAB, EXPLAINED THE IMPORTANCE OF FOLLOWING MD ORDER, PT STILL REFUSED, AWAITING MIDLINE INSERTION, WILL ENDORSE TO AM SHIFT NURSE FOR CONTINUITY OF CARE.
--- NOTE | 2022-05-20 07:15 | NUR ---
TEST INSPECTION ENGINEER OPENING NOTES: RECEIVED PATIENT IN BED, AWAKE, ALERT, AND ORIENTED X 3. NO SOB NOTED, BREATHING EVEN AND UNLABORED. ON OXYGEN @ 2L/MIN VIA N/C TOLERATING IT WELL. ON SR WITH HR OF 92 ON TELE MONITOR WITH BBB. IV ACCESS ON LEFT HAND INTACT. ALL SAFETY MEASURES IN PLACE. FOLLOWED ISOLATION PROTOCOL. BED LOCKED AND IN LOWEST POSITION WITH BED ALARM ON. CALL LIGHT WITHIN REACH. WILL CONTINUE TO MONITOR PATIENT THROUGHOUT SHIFT.
[2022-05-20 08:00] VITALS: BP 135/69
[2022-05-20] MEDS: FUROSEMIDE 40 MG TABLET PO SCH ×2 (08:08→17:00)
[2022-05-20] MEDS: DIVALPROEX SODIUM 250 MG TABLET.DR PO SCH ×2 (08:08→21:53)
[2022-05-20] MEDS: POTASSIUM CHLORIDE 20 MEQ TAB.PRT.SR PO SCH (08:09)
[2022-05-20] MEDS: MINOXIDIL (2.5MG) 2.5 MG TABLET PO SCH ×2 (08:09→21:54)
[2022-05-20] MEDS: ASCORBIC ACID 500 MG TABLET PO SCH (08:10)
[2022-05-20] MEDS: CLONIDINE HCL 0.1 MG TABLET PO SCH ×3 (08:10→17:00)
[2022-05-20] MEDS: ASPIRIN 81 MG TAB.CHEW PO SCH (08:10)
[2022-05-20] MEDS: METFORMIN 500 MG TABLET PO SCH ×2 (08:11→17:59)
[2022-05-20] MEDS: BLOOD SUGAR DIAGNOSTIC 1 EACH STRIP IN SCH ×4 (08:38→22:02)
[2022-05-20] MEDS: INSULIN REGULAR, HUMAN 100 UNIT/ML 3 ML VIAL SQ PRN ×4 (08:40→22:23)
[2022-05-20] MEDS: NYSTATIN OINT 100000 UNIT/G 15 GM TUBE TP SCH ×2 (08:41→21:00)
[2022-05-20] MEDS: CLOTRIMAZOLE 1% 15 GM TUBE TP SCH ×2 (08:41→17:02)
--- NOTE | 2022-05-20 08:57 | NUR ---
NURSE CEDRICK INSERTED IV MIDLINE ON PATIENT'S LEFT UPPER ARM # 18, FLUSHES WELL. PATIENT TOLERATED IT WELL.
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
[2022-05-20] MEDS: DEXAMETHASONE SOD PHOSPHATE 10 MG/ML VIAL IV SCH (09:34)
[2022-05-20] MEDS: PANTOPRAZOLE 40 MG VIAL IV SCH (09:34)
--- NOTE | 2022-05-20 09:39 | NUR ---
RT PATIENT AWAKE, ALERT, NO SOB. ON LOW O2. PATIENT REFUSED ABG DRAW.
[2022-05-20] MEDS: METOPROLOL TARTRATE 50 MG TABLET PO SCH ×2 (11:27→21:53)
[2022-05-20 12:00] VITALS: BP 119/60
[2022-05-20] MEDS: FINASTERIDE (5 MG) 5 MG TABLET PO SCH (12:18)
[2022-05-20] MEDS: ACETAMINOPHEN 325 MG TABLET PO PRN ×2 (12:18→21:52)
[2022-05-20 12:24] LABS: HEMATOCRIT 29 % (39-51); HEMOGLOBIN 9.3 g/dL (13.5-17.5); LYMPHOCYTES # (AUTO) 0.6 K/uL (0.8-4.8); LYMPHOCYTES % (AUTO) 3.6 % (20.0-44.0); MEAN CORPUSCULAR HGB CONC 32 g/dl (31.0-36.0); MEAN CORPUSCULAR VOLUME 79 fL (80-96); MONOCYTES # (AUTO) 0.6 K/uL (0.1-1.30); MONOCYTES % (AUTO) 3.4 % (2.0-12.0); NEUTROPHILS # (AUTO) 16.7 K/uL (1.8-8.9); PLATELET COUNT (AUTO) 253 K/uL (150-450); RED BLOOD CELL COUNT(AUTO) 3.71 MIL/uL (4.5-6.0)
[2022-05-20 12:31] LABS: CALCIUM, SERUM 8.3 mg/dL (8.5-10.1); CARBON DIOXIDE 26 mmol/L (21-32); CHLORIDE 101 mmol/L (98-107); CREATININE 1.7 mg/dL (0.6-1.3); GLUCOSE 270 mg/dL (74-106); SODIUM SERUM 137 mmol/L (136-145); UREA NITROGEN, BLOOD 26 mg/dL (7-18)
[2022-05-20 12:37] LABS: ALANINE AMINOTRANSFERASE 6 U/L (12-78); ALBUMIN 2.5 g/dL (3.4-5.0); ALKALINE PHOSPHATASE 61 U/L (46-116); ASPARTATE AMINOTRANSFERASE 19 U/L (15-37); BILIRUBIN,TOTAL 0.4 mg/dL (0.2-1.0); C-REACTIVE PROTEIN 36.5 mg/dL (0.0-0.9); MAGNESIUM 1.9 mg/dL (1.8-2.4); PHOSPHORUS 2.6 mg/dL (2.5-4.9); TOTAL PROTEIN, SERUM 7.4 g/dL (6.4-8.2)
[2022-05-20 12:40] LABS: POTASSIUM 2.3 mmol/L (3.5-5.1)
[2022-05-20 12:47] LABS: CHOLESTEROL 103 mg/dL (<200); FERRITIN 110 ng/mL (8-388); HDL CHOLESTEROL 40 mg/dL (40-60); LDL 49 mg/dL (0-99); TRIGLYCERIDES 69 mg/dL (30-150)
--- NOTE | 2022-05-20 13:03 | NUR ---
WOUND CARE CONSULT: REVIEWED CHART, NURSING DOCUMENTATION AND PHOTOS WHICH INDICATE SACRAL WOUND, ABDOMEN/FLANK REDNESS AND LOWER EXTREMITY WOUNDS, ALL PRESENT ON ADMISSION. DR EDMONDSON CALLED FOR SURGICAL CONSULT. DISCUSSED SKIN PROTECTION WITH NURSING STAFF. IN AGREEMENT WITH PLAN OF CARE.
--- NOTE | 2022-05-20 13:08 | NUR ---
TROPONIN LEVEL IS 1444 AND POTASSIUM LEVEL IS 2.[address] WHITMAN AND WILL GIVE 60 ME[address] TODAY [address] WHITMAN
[2022-05-20] MEDS ORDERED: Z GUARD REMEDY 4 OZ OINT TP PRN (13:30)
[2022-05-20] MEDS: Z GUARD REMEDY 4 OZ OINT TP SCH (13:43)
[2022-05-20] MEDS: HYDROCORTISONE 1% CREAM 28.35 GM TUBE TP PRN (14:28)
[2022-05-20] MEDS: NEOMY SULF/BACITRAC ZN/POLY 15 GM TUBE TP SCH (14:57)
[2022-05-20] MEDS: POTASSIUM CL. PREMIX PERIPHER. 50 ML IV SCH ×6 (15:01→20:07)
[2022-05-20] MEDS ORDERED: DEXAMETHASONE SOD PHOSPHATE 10 MG/ML VIAL IV SCH (15:30)
[2022-05-20 16:00] VITALS: BP 107/46
--- NOTE | 2022-05-20 16:20 | NUR ---
RECEIVED A CALL FROM DR CERVANTES FOR HEPARIN PROTOCOL. CHARGE NURSE NOTIFIED.
[2022-05-20] MEDS ORDERED: HEPARIN SODIUM, PORCINE 5000 UNITS/1 ML VIAL SQ SCH (17:00)
[2022-05-20] MEDS ORDERED: VANCOMYCIN 1.5 GM in IV D5W 500ml IV SCH (17:00)
[2022-05-20] MEDS ORDERED: HEPARIN INFUSION/D5W 500 ML IV PRN (17:00)
--- NOTE | 2022-05-20 17:04 | NUR ---
SPOKE WITH AILYN AT THE PHARMACY ANS SAID TO GIVEN VANCO ORDERED.
--- NOTE | 2022-05-20 17:05 | NUR ---
CONY FROM THE PHARMACY CALLED AND SAID THAT WE NEEDED TO HAVE A STAT PTT DRAWN FOR THE PATIENT. HEPARIN FORM FAXED TO THE PHARMACY
--- NOTE | 2022-05-20 17:10 | NUR ---
PATIENT INFORMED AND REFUSED TO HAVE LINE DRAWN FROM HIS IV MIDLINE FOR STAT PTT, WILL TRY AGAIN LATER.
--- NOTE | 2022-05-20 18:00 | NUR ---
PATIENT FINALLY AGREED AND CONTACTED LAB. DRAWN BLOOD SPECIMEN VIA MIDLINE AND HANDED TO THE PROGRAM REP
--- NOTE | 2022-05-20 18:50 | NUR ---
DIRECTOR OF SUSTAINABILITY CLOSING NOTES: PATIENT IN BED, AWAKE, ALERT. ORIENTED X 3. NO RESPIRATORY DISTRESS NOTED THROUGHOUT SHIFT. ON SR WITH HR OF 70 PER TELE MONITOR. IV ACCESS INTACT ON LEFT UPPER ARM MIDLINE, FLUSHES WELL AND NO S/S INFILTRATION NOTED. PTT RESULT IS STILL NOT AVAILABLE, WILL ENDORSE TO THE NEXT SHIFT NURSE TO FOLLOW UP. ALL SAFETY MEASURES IMPLEMENTED. BED LOCKED AND IN LOWEST POSITION. WILL ENDORSE TO INCOMING NURSE FOR CONTINUITY OF CARE.
--- NOTE | 2022-05-20 19:30 | NUR ---
PATIENT RECEIVED AWAKE. A/O X 3. NO RESPIRATORY DISTRESS. ON TELE MONITOR SHOWING SR. IV ACCESS ON [place]LEY MIDLINE. PTT RESULT IS STILL NOT AVAILABLE. ALL SAFETY MEASURES IN PLACE. WILL CONTINUE PLAN OF CARE..
[2022-05-20 20:00] VITALS: BP 114/54
[2022-05-20] MEDS ORDERED: HEPARIN SODIUM, PORCINE 5000 UNITS/1 ML VIAL IV ONE ×2 (21:00→23:00)
[2022-05-20] MEDS: diphenhydrAMINE HCL 25 MG CAPSULE PO PRN (21:53)
[2022-05-20] MEDS: TAMSULOSIN 0.4 MG CAP.SR.24H PO SCH (21:53)
[2022-05-20] MEDS: ATORVASTATIN 40 MG TABLET PO SCH (21:53)
[2022-05-20] MEDS ORDERED: INSULIN GLARGINE, 100 UNIT/ML CARTRIDGE SQ SCH (22:00)
[2022-05-20] MEDS: AZITHROMYCIN 500 MG in IV D5W 250 ML IV SCH (22:01)
[2022-05-21] VITALS (7 sets, daily range): BP systolic 94–128; BP diastolic 51–86
[2022-05-21] MEDS: diphenhydrAMINE HCL 25 MG CAPSULE PO PRN ×4 (05:30→21:33)
[2022-05-21 06:18] LABS: BASOPHILS % (AUTO) 0.1 % (0.0-2.0); HEMATOCRIT 26 % (39-51); HEMOGLOBIN 8.3 g/dL (13.5-17.5); LYMPHOCYTES # (AUTO) 1.1 K/uL (0.8-4.8); LYMPHOCYTES % (AUTO) 6.6 % (20.0-44.0); MEAN CORPUSCULAR HGB CONC 32 g/dl (31.0-36.0); MEAN CORPUSCULAR VOLUME 79 fL (80-96); MONOCYTES # (AUTO) 1.3 K/uL (0.1-1.30); MONOCYTES % (AUTO) 8.3 % (2.0-12.0); NEUTROPHILS # (AUTO) 13.7 K/uL (1.8-8.9); PLATELET COUNT (AUTO) 249 K/uL (150-450); RED BLOOD CELL COUNT(AUTO) 3.24 MIL/uL (4.5-6.0); WHITE BLOOD COUNT (AUTO) 16.1 K/uL (4.3-11.0)
[2022-05-21 06:38] LABS: ALBUMIN 2.2 g/dL (3.4-5.0); ALKALINE PHOSPHATASE 56 U/L (46-116); ASPARTATE AMINOTRANSFERASE 16 U/L (15-37); BILIRUBIN,TOTAL 0.3 mg/dL (0.2-1.0); CALCIUM, SERUM 7.9 mg/dL (8.5-10.1); CARBON DIOXIDE 26 mmol/L (21-32); CHLORIDE 100 mmol/L (98-107); CREATININE 1.9 mg/dL (0.6-1.3); GLUCOSE 292 mg/dL (74-106); MAGNESIUM 1.9 mg/dL (1.8-2.4); PHOSPHORUS 2.7 mg/dL (2.5-4.9); SODIUM SERUM 135 mmol/L (136-145); TOTAL PROTEIN, SERUM 6.8 g/dL (6.4-8.2); UREA NITROGEN, BLOOD 33 mg/dL (7-18)
[2022-05-21 06:44] LABS: POTASSIUM 2.6 mmol/L (3.5-5.1)
[2022-05-21 06:53] LABS: ALANINE AMINOTRANSFERASE 7 U/L (12-78)
--- NOTE | 2022-05-21 07:30 | NUR ---
RN OPENING NOTE PT OBSERVED IN BED SLEEPING. PT IS ON 2L NC O2 SAT 98% TOLERATING WELL NO SIGNS OF DISTRESS OR LABORED BREATHING AT THIS TIME. A/OX4 AND HARD OF HEARING. PT IS SR 70S AND HAS DIAPER. PT IS ON A CCHO DIET IV ACCESS L UA MIDLINE INFUSING WITH HEPARIN DRIP @1200 UNITS/HR. BED IS LOCKED IN LOWEST POSITION X2 BED RAIL UP CALL LIGHT IS WITHIN REACH AND ALL HOSPITAL SAFETY MEASURES ARE IN PLACE WILL CONTINUE TO MONITOR THIS SHIFT.
--- NOTE | 2022-05-21 08:08 | NUR ---
PATIENT IN BED, AWAKE, ALERT. ORIENTED X 3. NO RESPIRATORY DISTRESS NOTED THROUGHOUT SHIFT. ON SR WITH HR OF 70 PER TELE MONITOR. IV ACCESS INTACT ON LEFT UPPER ARM MIDLINE, FLUSHES WELL AND NO S/S INFILTRATION NOTED. INFUSING HEPARIN DRIP AT 1200 UNITS STARTED AT 2337. ALL SAFETY MEASURES IMPLEMENTED. BED LOCKED AND IN LOWEST POSITION. WILL ENDORSE TO INCOMING NURSE FOR CONTINUITY OF CARE.
[2022-05-21] MEDS: BLOOD SUGAR DIAGNOSTIC 1 EACH STRIP IN SCH ×4 (08:31→21:35)
[2022-05-21] MEDS: INSULIN REGULAR, HUMAN 100 UNIT/ML 3 ML VIAL SQ PRN ×4 (08:34→21:45)
[2022-05-21] MEDS: DIVALPROEX SODIUM 250 MG TABLET.DR PO SCH ×2 (08:36→21:33)
[2022-05-21] MEDS: METFORMIN 500 MG TABLET PO SCH ×2 (08:36→17:42)
[2022-05-21] MEDS: PANTOPRAZOLE 40 MG VIAL IV SCH (08:36)
[2022-05-21] MEDS: ASPIRIN 81 MG TAB.CHEW PO SCH (08:36)
[2022-05-21] MEDS: ASCORBIC ACID 500 MG TABLET PO SCH (08:36)
[2022-05-21] MEDS: DEXAMETHASONE SOD PHOSPHATE 10 MG/ML VIAL IV SCH (08:37)
[2022-05-21] MEDS: CLOTRIMAZOLE 1% 15 GM TUBE TP SCH ×2 (08:38→17:00)
[2022-05-21] MEDS: POTASSIUM CHLORIDE 20 MEQ TAB.PRT.SR PO SCH ×6 (08:38→14:03)
[2022-05-21] MEDS: NYSTATIN OINT 100000 UNIT/G 15 GM TUBE TP SCH ×2 (08:39→21:34)
[2022-05-21] MEDS: Z GUARD REMEDY 4 OZ OINT TP SCH (08:40)
[2022-05-21] MEDS: NEOMY SULF/BACITRAC ZN/POLY 15 GM TUBE TP SCH (08:40)
[2022-05-21] MEDS: METOPROLOL TARTRATE 50 MG TABLET PO SCH ×2 (08:49→21:33)
[2022-05-21] MEDS: CLONIDINE HCL 0.1 MG TABLET PO SCH ×3 (09:00→17:00)
[2022-05-21] MEDS: FUROSEMIDE 40 MG TABLET PO SCH ×2 (09:01→17:42)
[2022-05-21] MEDS: MINOXIDIL (2.5MG) 2.5 MG TABLET PO SCH ×2 (09:01→21:32)
--- NOTE | 2022-05-21 12:15 | NUR ---
REPORT GIVEN TO JAGDEEP LOCKE. PT STABLE AT THIS TIME.
[2022-05-21] MEDS: FINASTERIDE (5 MG) 5 MG TABLET PO SCH (12:41)
[2022-05-21] MEDS ORDERED: CEFAZOLIN 1 GM VIAL IM SCH (15:30)
[2022-05-21] MEDS: CEFAZOLIN 2 GM in IV D5W 100 ML IV SCH ×2 (15:54→21:17)
--- NOTE | 2022-05-21 16:24 | NUR ---
Doctor Abel Lofton informed resident refused blood work, explained to patient the need to draw blood Vancomycin Through and Troponin but patient refused, I explained to patient he has a midlilne on left arm and blood can be drawn from there by RN but he refused. Risk vs benefits explained, patients states if you draw "I will scream." "I will have the drawn may be tomorrow or later."
--- NOTE | 2022-05-21 16:38 | NUR ---
Dr. Lofton with with orders to hold Vancomycin Pharmacy informed.
[2022-05-21 16:50] LABS: BILIRUBIN,URINE NEGATIVE (NEGATIVE); COLOR,URINE YELLOW (YELLOW); LEUKOCYTE ESTERASE ,URINE 3+ (NEGATIVE); NITRITE, URINE NEGATIVE (NEGATIVE); PROTEIN,URINE 1+ mg/dl (NEGATIVE); UGLUCOSE 1+ mg/dL (NEGATIVE); UROBILINOGEN,URINE 0.2 EU/dL (0.2)
[2022-05-21 16:54] LABS: CREATININE, URINE 43.4 MG/DL (30.0-125.0)
--- NOTE | 2022-05-21 17:56 | NUR ---
Patient noted with episodes of yelling "I want to go home." explained to patient CT chest has not been done yet, and per radiology (Zhen) he is trying to have him done tonight if possible, also informed him home health care social worker will be speaking to him regarding his concerns, explained he is currently on isolation for Covid-19. Patient requesting to speak to and if he is asleep when he comes by to wake him up. informed.
[2022-05-21 18:08] LABS: RBC,URINE 21-50 /HPF (0-2); WBC,URINE 51-80 /HPF (0-3)
[2022-05-21 18:09] LABS: BACTERIA,URINE Few /HPF (None Seen); SQUAMOUS EPITHELIAL CELL,UR Few /HPF (None Seen)
--- NOTE | 2022-05-21 18:30 | NUR ---
SPINDRAW OPERATOR CLOSING NOTE: ALERT AND ORIENTED TIEMS 4. [place]. ON O2 2LPM NC. SATING AT 100%. LEFT UPPER ARM MIDLINE PATENT. NO S/S OF COMPLICATIONS. LEFT HAND PERIPHERAL IV SALINE LOCKED. SOLE DYER SINUS RHYTHM FIRST DEGREE BLOCK BBB. WENT FOR CT SCAN. CONDOM CATH ON OUTPUT 1600ML.
--- NOTE | 2022-05-21 19:30 | NUR ---
PT RECEIVED ASLEEP. EASILY AWAKEN. A/OX4. [place]. DENIES PAIN AND DISCOMFORT. ON O2 VIA NC AT 2LPM. IV ACCESS ON LEFT UPPER ARM MIDLINE. LEFT HAND PERIPHERAL IV SALINE LOCKED. ON TELE MONITOR SHOWING SINUS RHYTHM FIRST DEGREE BLOCK BBB. SAFETY MEASURES IN PLACE. HOB ELEVATED. CALL LIGHT IN REACH. WILL CONTINUE PLAN OF CARE.
[2022-05-21] MEDS: HEPARIN SODIUM, PORCINE 5000 UNITS/1 ML VIAL SQ SCH (21:16)
[2022-05-21] MEDS: ACETAMINOPHEN 325 MG TABLET PO PRN (21:32)
[2022-05-21] MEDS: TAMSULOSIN 0.4 MG CAP.SR.24H PO SCH (21:33)
[2022-05-21] MEDS: ATORVASTATIN 40 MG TABLET PO SCH (21:34)
[2022-05-21] MEDS: HYDROCORTISONE 1% CREAM 28.35 GM TUBE TP PRN (21:34)
[2022-05-21] MEDS: INSULIN GLARGINE, 100 UNIT/ML CARTRIDGE SQ SCH (21:37)
[2022-05-21] MEDS: INSULIN ASPART/LISPRO 100 UNIT/ML CARTRIDGE SQ PRN (21:40)
[2022-05-22] VITALS: BP 94/67
[2022-05-22 04:00] VITALS: BP_SYST 123; BP_SYST 94; BP_DIAS 67; BP_DIAS 75
[2022-05-22] MEDS: CEFAZOLIN 2 GM in IV D5W 100 ML IV SCH ×4 (05:05→20:56)
--- NOTE | 2022-05-22 07:25 | NUR ---
rn opening note PT AWAKE. A/OX4. [place].verbally responsive able to make needs known. pt is bedbound and total assistance.DENIES PAIN AND DISCOMFORT at this time. ON O2 VIA NC AT 2LPM. IV ACCESS ON LEFT UPPER ARM MIDLINE. LEFT HAND PERIPHERAL IV SALINE LOCKED. iv patent, intact and flushing well. ON TELE MONITOR sr/sb. all SAFETY MEASURES IN PLACE. HOB ELEVATED. bed locked in lowest position. bed alarm on
--- NOTE | 2022-05-22 07:39 | NUR ---
PT AWAKE. A/OX4. [place]. COMBATIVE WHILE CLEANING AND CHANGING SHEETS. DENIES PAIN AND DISCOMFORT. ON O2 VIA NC AT 2LPM. IV ACCESS ON LEFT UPPER ARM MIDLINE. LEFT HAND PERIPHERAL IV SALINE LOCKED. ON TELE MONITOR SHOWING SINUS RHYTHM FIRST DEGREE BLOCK BBB. SAFETY MEASURES IN PLACE. HOB ELEVATED. CALL LIGHT IN REACH. WILL CONTINUE PLAN OF CARE.
[2022-05-22] MEDS: BLOOD SUGAR DIAGNOSTIC 1 EACH STRIP IN SCH ×4 (07:53→21:14)
--- NOTE | 2022-05-22 07:54 | NUR ---
rn note pt refuses insulin. bs 265 and refuses blood draw Addendum: 05/22/22 at 1242 by CONSTANTINO WHEELER RN and certain medications. sebastien mendoza bs 315, pt refuses insulin.
[2022-05-22 08:00] VITALS: BP 165/85
[2022-05-22] MEDS: ASPIRIN 81 MG TAB.CHEW PO SCH (08:45)
[2022-05-22] MEDS: PANTOPRAZOLE 40 MG VIAL IV SCH (08:45)
[2022-05-22] MEDS: DEXAMETHASONE SOD PHOSPHATE 10 MG/ML VIAL IV SCH (08:45)
[2022-05-22] MEDS: METFORMIN 500 MG TABLET PO SCH ×2 (08:45→17:45)
[2022-05-22] MEDS: DIVALPROEX SODIUM 250 MG TABLET.DR PO SCH ×2 (08:46→21:03)
[2022-05-22] MEDS: CLONIDINE HCL 0.1 MG TABLET PO SCH ×4 (08:46→17:46)
[2022-05-22] MEDS: FUROSEMIDE 40 MG TABLET PO SCH ×2 (08:47→17:45)
[2022-05-22] MEDS: POTASSIUM CHLORIDE 20 MEQ TAB.PRT.SR PO SCH (08:47)
[2022-05-22] MEDS: ASCORBIC ACID 500 MG TABLET PO SCH (08:48)
[2022-05-22] MEDS: METOPROLOL TARTRATE 50 MG TABLET PO SCH ×3 (08:54→21:02)
[2022-05-22] MEDS: NYSTATIN OINT 100000 UNIT/G 15 GM TUBE TP SCH ×2 (08:55→21:04)
[2022-05-22] MEDS: NEOMY SULF/BACITRAC ZN/POLY 15 GM TUBE TP SCH (08:55)
[2022-05-22] MEDS: Z GUARD REMEDY 4 OZ OINT TP SCH ×2 (08:55→21:28)
[2022-05-22] MEDS: MINOXIDIL (2.5MG) 2.5 MG TABLET PO SCH ×2 (09:00→21:00)
[2022-05-22 12:00] VITALS: BP 134/68
[2022-05-22] MEDS: CLOTRIMAZOLE 1% 15 GM TUBE TP SCH ×2 (12:41→17:45)
[2022-05-22] MEDS: FINASTERIDE (5 MG) 5 MG TABLET PO SCH (13:24)
[2022-05-22] MEDS: GLUCERNA SHAKE 237 ML CAN PO SCH ×2 (13:26→17:46)
[2022-05-22] MEDS: HEPARIN SODIUM, PORCINE 5000 UNITS/1 ML VIAL SQ SCH ×2 (13:27→21:00)
--- NOTE | 2022-05-22 13:50 | NUR ---
rn note opened up clonidine and proscar in pt room. pt refused. threw away medication in sharps container Addendum: 05/22/22 at 1351 by CONSTANTINO WHEELER RN and wants to go home. notified louise rasmussen. louise rojas
[2022-05-22] MEDS ORDERED: DEXA6TAB6 PO (14:30)
[2022-05-22] MEDS ORDERED: CEPH500T PO (14:30)
[2022-05-22 16:00] VITALS: BP 139/71
--- NOTE | 2022-05-22 17:30 | NUR ---
rn note pt refuses certain medications at times. provided education about benefits and risks. pt still refused. louise rojas
[2022-05-22] MEDS: INSULIN REGULAR, HUMAN 100 UNIT/ML 3 ML VIAL SQ PRN ×2 (17:48→21:25)
--- NOTE | 2022-05-22 18:26 | NUR ---
ambulance didnot pickup pt. per ambulance pt. wide and need bariatric stretcher,cm gone nursing office notified.
--- NOTE | 2022-05-22 19:39 | NUR ---
rn closing note pt alert and oriented x4. pt hard of hearing. pt verbally abusive at times. pt COMBATIVE WHILE CLEANING AND CHANGING SHEETS.pt is bedbound. pt has iv access. iv intact, patent and fluishing well. pt on 2 l nasal cannula tolerating above 92%.on tele monitor. all safety measures in place.call light within reach, bed locked at lowest position. side rails up x2. bed alarm on. endorsed to night warehouse selector rn for contuioty of care
[2022-05-22 20:00] VITALS: BP 161/62
[2022-05-22] MEDS: ATORVASTATIN 40 MG TABLET PO SCH (21:04)
[2022-05-22] MEDS: TAMSULOSIN 0.4 MG CAP.SR.24H PO SCH (21:05)
[2022-05-22] MEDS: diphenhydrAMINE HCL 25 MG CAPSULE PO PRN (21:06)
[2022-05-22] MEDS: INSULIN GLARGINE, 100 UNIT/ML CARTRIDGE SQ SCH (21:27)
[2022-05-23] VITALS: BP 111/75
[2022-05-23 04:00] VITALS: BP 111/75
[2022-05-23] MEDS: CEFAZOLIN 2 GM in IV D5W 100 ML IV SCH (04:31)
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
[2022-05-23] MEDS: BLOOD SUGAR DIAGNOSTIC 1 EACH STRIP IN SCH ×4 (07:26→22:06)
--- NOTE | 2022-05-23 07:27 | NUR ---
rn opening note PT AWAKE. A/OX4. [place].verbally responsive able to make needs known. pt is bedbound and total assistance.DENIES PAIN AND DISCOMFORT at this time. ON O2 VIA NC AT 2LPM. IV ACCESS ON LEFT UPPER ARM MIDLINE. LEFT HAND PERIPHERAL IV SALINE LOCKED. iv patent, intact and flushing well. ON TELE MONITOR sr/sb. all SAFETY MEASURES IN PLACE. HOB ELEVATED. bed locked in lowest position. bed alarm on.side rails up x2
--- NOTE | 2022-05-23 07:27 | NUR ---
rn note pt bs 242, pt refuses insulin. provided education.pt refused
[2022-05-23 08:00] VITALS: BP 164/74
[2022-05-23] MEDS: METFORMIN 500 MG TABLET PO SCH ×2 (08:31→17:09)
[2022-05-23] MEDS: PANTOPRAZOLE 40 MG VIAL IV SCH (08:31)
[2022-05-23] MEDS: DIVALPROEX SODIUM 250 MG TABLET.DR PO SCH ×2 (08:32→21:26)
[2022-05-23] MEDS: CLONIDINE HCL 0.1 MG TABLET PO SCH ×3 (08:32→16:50)
[2022-05-23] MEDS: ASPIRIN 81 MG TAB.CHEW PO SCH (08:32)
[2022-05-23] MEDS: ASCORBIC ACID 500 MG TABLET PO SCH (08:33)
[2022-05-23] MEDS: diphenhydrAMINE HCL 25 MG CAPSULE PO PRN (08:33)
[2022-05-23] MEDS: MINOXIDIL (2.5MG) 2.5 MG TABLET PO SCH ×2 (08:33→21:25)
[2022-05-23] MEDS: FUROSEMIDE 40 MG TABLET PO SCH ×2 (08:33→17:09)
[2022-05-23] MEDS: GLUCERNA SHAKE 237 ML CAN PO SCH ×3 (08:48→19:02)
[2022-05-23] MEDS: METOPROLOL TARTRATE 50 MG TABLET PO SCH ×2 (08:48→21:26)
[2022-05-23] MEDS: HEPARIN SODIUM, PORCINE 5000 UNITS/1 ML VIAL SQ SCH ×2 (08:49→21:00)
[2022-05-23] MEDS: CLOTRIMAZOLE 1% 15 GM TUBE TP SCH ×2 (08:49→19:03)
[2022-05-23] MEDS: NEOMY SULF/BACITRAC ZN/POLY 15 GM TUBE TP SCH (08:49)
[2022-05-23] MEDS: NYSTATIN OINT 100000 UNIT/G 15 GM TUBE TP SCH ×2 (08:49→21:00)
[2022-05-23] MEDS: CEFTRIAXONE 2 G in IV D5W 100 ML IV SCH (09:00)
[2022-05-23] MEDS: POTASSIUM CHLORIDE 20 MEQ TAB.PRT.SR PO SCH (09:00)
[2022-05-23 12:00] VITALS: BP 139/74
--- NOTE | 2022-05-23 12:00 | NUR ---
rn note pt refuses certain medications to be given.provided education. pt still refused. louise rojas
[2022-05-23] MEDS: FINASTERIDE (5 MG) 5 MG TABLET PO SCH (13:36)
[2022-05-23 16:00] VITALS: BP 113/60
[2022-05-23] MEDS: INSULIN ASPART/LISPRO 100 UNIT/ML CARTRIDGE SQ PRN (17:12)
[2022-05-23] MEDS: INSULIN REGULAR, HUMAN 100 UNIT/ML 3 ML VIAL SQ PRN (17:13)
--- NOTE | 2022-05-23 17:32 | NUR ---
rn note pt blood sugar 324. able to give short acting insulin, but pt refused insulin lispro. educated pt about benefits and risks. pt still refused
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
--- NOTE | 2022-05-23 19:20 | NUR ---
RN NOTES RECEIVED REPORT FROM MORNING SHIFT. PATIENT A/O X4. ON ROOM AIR SATING 98% NO SOB NO DISTRESS NOTED AT THIS TIME. ON TELE MONITOR WITH SR ON MONITOR. WITH IV ACCESS AT L UA MIDLINE PATENT FLUSHES WELL NO INFILTRATION NOTED. ALL SAFETY MEASURES IN PLACE AT ALL TIMES. HOB ELEVATED. CALL LIGHT WITHIN REACH.WILL CLOSELY MONITOR THE PATIENT
[2022-05-23 20:00] VITALS: BP 133/69
--- NOTE | 2022-05-23 20:04 | NUR ---
rn closing note pt alert and oriented x4. pt hard of hearing. pt verbally abusive at times. pt COMBATIVE WHILE CLEANING AND CHANGING SHEETS.offered hydration throughout shift. pt is bedbound. pt has iv access. iv intact, patent and fluishing well. pt on 2 l nasal cannula tolerating above 92%.on tele monitor. all safety measures in place.call light within reach, bed locked at lowest position. side rails up x2. bed alarm on. endorsed to scene shifter rn for contuioty of care
[2022-05-23] MEDS: TAMSULOSIN 0.4 MG CAP.SR.24H PO SCH (21:26)
[2022-05-23] MEDS: ATORVASTATIN 40 MG TABLET PO SCH (21:26)
[2022-05-23] MEDS: INSULIN GLARGINE, 100 UNIT/ML CARTRIDGE SQ SCH (22:00)
--- NOTE | 2022-05-23 22:10 | NUR ---
RN NOTES PATIENT REFUSED HEPARIN AND LANTUS BS IS 301, RISK AND BENIFITS EXPLAINED PATIENT STILL REFUSED.
[2022-05-24] VITALS: BP 129/67
--- NOTE | 2022-05-24 01:30 | NUR ---
RN NOTES TRIED TO CLEAN PATIENT WITH REGIONAL DRIVER, PATIENT REFUSED TO TURNED AND REMOVE THE LINEN ON HIS BACK. EXPLAINED TO PATIENT THAT HIS LINEN IS WET AND NEEDS TO BE CHANGE. PATIENT STILL REFUSED HE JUST WANT HIS PADS TO BE CHANGED AND CLEAN IS Addendum: 05/24/22 at 0250 by NUNU DRAPER RN ADDENDUM HIS FRONT NO TURNING. EXPLAINED PATIENT IT WILL CAUSE SKIN BREAKDOWN IF HE KEEP REFUSING TO BE TURN AND CLEAN.
[2022-05-24] MEDS: diphenhydrAMINE HCL 25 MG CAPSULE PO PRN ×2 (01:51→08:34)
[2022-05-24 04:00] VITALS: BP 149/70
--- NOTE | 2022-05-24 07:00 | NUR ---
RN OPENING NOTE RECEIVED REPORT FROM BUSINESS APPLICATIONS ANALYST NURSE. PATIENT A/O X4, HAS HEARING LOSS. ON ROOM AIR SATING 98% NO SOB NO DISTRESS NOTED AT THIS TIME. ON EXTERNAL CONSTRUCTION ESTIMATOR, SHOWS SR. IV ACCESS LEFT UA MIDLINE, FLUSHES WELL. ALL SAFETY MEASURES IN PLACE AT ALL TIMES. HOB ELEVATED. CALL LIGHT WITHIN REACH. WILL CONTINUE TO MONITOR THE PATIENT
[2022-05-24] MEDS: BLOOD SUGAR DIAGNOSTIC 1 EACH STRIP IN SCH ×2 (07:51→11:56)
[2022-05-24 08:00] VITALS: BP 150/85
[2022-05-24] MEDS: GLUCERNA SHAKE 237 ML CAN PO SCH ×2 (08:22→11:34)
[2022-05-24] MEDS: METFORMIN 500 MG TABLET PO SCH (08:26)
[2022-05-24] MEDS: METOPROLOL TARTRATE 50 MG TABLET PO SCH (08:44)
[2022-05-24] MEDS: PANTOPRAZOLE 40 MG VIAL IV SCH (08:44)
[2022-05-24] MEDS: FUROSEMIDE 40 MG TABLET PO SCH (08:45)
[2022-05-24] MEDS: CLONIDINE HCL 0.1 MG TABLET PO SCH ×2 (08:45→12:12)
[2022-05-24] MEDS: DIVALPROEX SODIUM 250 MG TABLET.DR PO SCH (08:46)
[2022-05-24] MEDS: ASCORBIC ACID 500 MG TABLET PO SCH (08:46)
[2022-05-24] MEDS: ASPIRIN 81 MG TAB.CHEW PO SCH (08:47)
[2022-05-24] MEDS: HEPARIN SODIUM, PORCINE 5000 UNITS/1 ML VIAL SQ SCH (08:50)
--- NOTE | 2022-05-24 08:51 | NUR ---
PATIENT REFUSED TO GET HEPARIN INJECTION, STATED THAT HE WILL NOT LET ANY SHOTS DONE TO HIM.
[2022-05-24] MEDS: NYSTATIN OINT 100000 UNIT/G 15 GM TUBE TP SCH (08:57)
[2022-05-24] MEDS: MINOXIDIL (2.5MG) 2.5 MG TABLET PO SCH (08:57)
[2022-05-24] MEDS: NEOMY SULF/BACITRAC ZN/POLY 15 GM TUBE TP SCH (08:57)
[2022-05-24] MEDS: Z GUARD REMEDY 4 OZ OINT TP SCH (08:57)
[2022-05-24] MEDS: CLOTRIMAZOLE 1% 15 GM TUBE TP SCH (08:57)
[2022-05-24] MEDS: CEFTRIAXONE 2 G in IV D5W 100 ML IV SCH (08:59)
[2022-05-24] MEDS ORDERED: POTASSIUM CHLORIDE 20 MEQ TAB.PRT.SR PO SCH ×2 (09:00)
--- NOTE | 2022-05-24 11:33 | NUR ---
PT REFUSED LABS, SECOND TIME TODAY
[2022-05-24] MEDS: INSULIN ASPART/LISPRO 100 UNIT/ML CARTRIDGE SQ PRN (11:58)
[2022-05-24 12:00] VITALS: BP 151/73
[2022-05-24 12:12] VITALS: BP 151/73
[2022-05-24] MEDS: FINASTERIDE (5 MG) 5 MG TABLET PO SCH (12:12)
--- NOTE | 2022-05-24 15:35 | NUR ---
PATIENT WILL BE D/C TODAY , GOING BACK TO [facility]. TIRE SORTER SCHEDULED FOR 1600. PT IS IN STABLE CONDITION, ALERT AND ORIENTED X 4. UNABLE TO GIVE A PHONE REPORT TO THE LIVING FACILITY, PHONE NEVER ANSWERED.
== END 2022-05-24 16:55 | DRG 871 ==
LOC: ER 16:05 → TELE1 20:25
PROVIDERS: ADMIT Registered Nurse; ATTEND Nurse Practitioner Acute Care
PROC: 05HC33Z Insertion of Infusion Device into Left Basilic Vein, Percutaneous Approach (ICD-10-PCS; principal; 2022-05-20)
DX: A41.89 Other specified sepsis (principal); G92.8 Other toxic encephalopathy; I21.A1 Myocardial infarction type 2; J96.01 Acute respiratory failure with hypoxia; J12.82 Pneumonia due to coronavirus disease 2019; U07.1 COVID-19; N17.0 Acute kidney failure with tubular necrosis; J15.9 Unspecified bacterial pneumonia; L03.818 Cellulitis of other sites; N39.0 Urinary tract infection, site not specified; E66.2 Morbid (severe) obesity with alveolar hypoventilation; J98.11 Atelectasis; I13.0 Hypertensive heart and chronic kidney disease with heart failure and stage 1 through stage 4 chronic kidney disease, or unspecified chronic kidney disease; E87.20 Acidosis, unspecified; N13.8 Other obstructive and reflux uropathy; I25.10 Atherosclerotic heart disease of native coronary artery without angina pectoris; I50.9 Heart failure, unspecified; Z79.4 Long term (current) use of insulin; Z79.84 Long term (current) use of oral hypoglycemic drugs; Z79.82 Long term (current) use of aspirin; Z79.899 Other long term (current) drug therapy; G40.909 Epilepsy, unspecified, not intractable, without status epilepticus; D64.9 Anemia, unspecified; Z90.49 Acquired absence of other specified parts of digestive tract; R65.20 Severe sepsis without septic shock; Z68.39 Body mass index [BMI] 39.0-39.9, adult; Z78.9 Other specified health status; Z79.01 Long term (current) use of anticoagulants; Z85.828 Personal history of other malignant neoplasm of skin; Z95.1 Presence of aortocoronary bypass graft; L98.9 Disorder of the skin and subcutaneous tissue, unspecified; E11.22 Type 2 diabetes mellitus with diabetic chronic kidney disease; N18.9 Chronic kidney disease, unspecified; E87.6 Hypokalemia; R91.1 Solitary pulmonary nodule; B96.89 Other specified bacterial agents as the cause of diseases classified elsewhere; N40.1 Benign prostatic hyperplasia with lower urinary tract symptoms; Z74.09 Other reduced mobility; L89.896 Pressure-induced deep tissue damage of other site; R60.9 Edema, unspecified
CPT/HCPCS: 36410; 36415; 71045-TC; 71250-TC; 76770-TC; 80048-TC; 80053-TC; 80061-TC; 80076-TC; 80202-TC; 81001; 82550-TC; 82570-TC; 82728-TC; 82962-TC; 83605-TC; 83615-TC; 83735-TC; 84100-TC; 84300-TC; 84443-TC; 84484-TC; 85025-TC; 85378-TC; 85730-TC; 86140-TC; 86704; 86803; 87040-TC; 87081-TC; 87086-TC; 87340; 87806; 97530-TC; A4223; A4349; C9113; C9803; G0378; J0456; J0690; J0692; J0696; J1100; J1644; J1815; J3370; J3480; J7030; J7040; J7050; J7060; J7070; Q0163

== ENCOUNTER 2022-07-27 23:06 | Emergency (ER) | payer MEDICARE, OTHER ==
[~2022-07-27] VITALS: Ht 182.9 cm; Wt 124.7 kg
[~2022-07-27 23:06] MED LIST changes: +ALLA266C2 TP; -AMLO-213 PO; +AMMO225L14 TP; +ATOR40TA PO; +CEPH500T PO; -CHOL400T58 PO; +CLOT15CR27 TP; +DEXA6TAB6 PO; +DIVA-76 PO; -DOCU-141 PO; -ENOX40DI SQ; -FAMO20TA8 PO; +GLUC1AUT SQ; -GLUC1KIT SQ; +HYDR28.32 TP; -MAGN400O6 PO; -MULT-447 PO; +NEOM1OIN15 TP; +NITR0.4T48 SL; +NYST15OI TP; -ONDA4TAB11 SL; +POTA20TA83 PO; -ROSU40TA PO; -SENN-261 PO; +ZOLP5TAB8 PO
--- NOTE | 2022-07-28 00:24 | NUR ---
IV MARCELO G20 INSERTED ON RIGHT FA. BLOOD DRAWN AND SENT TO LAB
[2022-07-28 00:37] LABS: BASOPHILS # (AUTO) 0.1 K/uL (0.0-0.2); BASOPHILS % (AUTO) 0.6 % (0.0-2.0); EOSINOPHILS % (AUTO) 2.2 % (0.0-6.0); HEMATOCRIT 35 % (39-51); HEMOGLOBIN 11.4 g/dL (13.5-17.5); LYMPHOCYTES # (AUTO) 1.5 K/uL (0.8-4.8); LYMPHOCYTES % (AUTO) 15.9 % (20.0-44.0); MEAN CORPUSCULAR HGB CONC 32 g/dl (31.0-36.0); MEAN CORPUSCULAR VOLUME 83 fL (80-96); MONOCYTES % (AUTO) 11.2 % (2.0-12.0); NEUTROPHILS # (AUTO) 6.6 K/uL (1.8-8.9); NEUTROPHILS % (AUTO) 70.1 % (43.0-81.0); PLATELET COUNT (AUTO) 310 K/uL (150-450); RED BLOOD CELL COUNT(AUTO) 4.25 MIL/uL (4.5-6.0); WHITE BLOOD COUNT (AUTO) 9.4 K/uL (4.3-11.0)
[2022-07-28 01:00] LABS: CALCIUM, SERUM 8.9 mg/dL (8.5-10.1); CARBON DIOXIDE 27 mmol/L (21-32); CHLORIDE 100 mmol/L (98-107); CREATININE 1.8 mg/dL (0.6-1.3); GLUCOSE 191 mg/dL (74-106); SODIUM SERUM 137 mmol/L (136-145); UREA NITROGEN, BLOOD 30 mg/dL (7-18)
[2022-07-28 01:04] LABS: POTASSIUM 2.8 mmol/L (3.5-5.1)
--- NOTE | 2022-07-28 03:20 | NUR ---
Troponin relayed to Dr. Law Erwin from 64, Potassium 2.8.
--- NOTE | 2022-07-28 03:36 | NUR ---
[facility] WILL TRANSPORT PATIENT BACK TO FACILITY IN 1 HOUR
--- NOTE | 2022-07-28 04:20 | NUR ---
REPORT GIVEN TO [facility] UNIT [address]. PT WILL BE GOING BACK TO [facility].
[2022-07-28 04:49] VITALS: BP 139/80
[2022-08-12] MEDS ORDERED: DIVA250T4 PO (12:13)
[2022-08-12] MEDS ORDERED: POTA20TA83 PO (12:13)
[2022-08-12] MEDS ORDERED: Tamsulosin PO (12:13)
[2022-08-12] MEDS ORDERED: AMMO225L14 TP (12:13)
[2022-08-12] MEDS ORDERED: VALS80TA31 PO (12:13)
[2022-08-12] MEDS ORDERED: POLY17PO29 PO (12:13)
[2022-08-12] MEDS ORDERED: CLOT15CR35 TP (12:13)
[2022-08-12] MEDS ORDERED: NYST15CR TP (12:13)
[2022-08-12] MEDS ORDERED: ACET325T53 PO (12:13)
[2022-08-12] MEDS ORDERED: CLON0.1T PO (12:13)
[2022-08-12] MEDS ORDERED: Neomy Sulf/Bacitrac Zn/Poly TP (12:13)
[2022-08-12] MEDS ORDERED: MINO2.5T PO (12:13)
[2022-08-12] MEDS ORDERED: CALC500T63 PO (12:13)
[2022-08-12] MEDS ORDERED: ASPI-1169 PO (12:13)
[2022-08-12] MEDS ORDERED: ATOR40TA PO (12:13)
[2022-08-12] MEDS ORDERED: METO25TA4 PO (12:13)
[2022-08-12] MEDS ORDERED: Sulfameth/Trimeth 800/160 Mg PO (12:13)
[2022-08-12] MEDS ORDERED: FINA5TAB3 PO (12:13)
[2022-08-12] MEDS ORDERED: OLAN5TAB6 PO (12:13)
[2022-08-12] MEDS ORDERED: HYDR28.32 TP (12:13)
== END 2022-07-28 00:01 | disposition home health service (06) ==
LOC: ER 23:10
DX: R07.9 Chest pain, unspecified (principal); M79.10 Myalgia, unspecified site; I11.0 Hypertensive heart disease with heart failure; I50.9 Heart failure, unspecified; E11.9 Type 2 diabetes mellitus without complications; Z79.899 Other long term (current) drug therapy
CPT/HCPCS: 36415; 71045-TC; 80048-TC; 82550-TC; 83880; 84484-TC; 85025-TC

== ENCOUNTER 2022-08-06 21:30 | Inpatient (IN) | payer OTHER, MEDICARE ==
[~2022-08-06] VITALS: Ht 182.9 cm; Wt 108.9 kg
[2022-08-06] MEDS ORDERED: IV NS 0.9% 500 ML BAG IV ONE (22:30)
[2022-08-06 22:52] LABS: BASOPHILS % (AUTO) 0.3 % (0.0-2.0); EOSINOPHILS % (AUTO) 1.5 % (0.0-6.0); HEMATOCRIT 31 % (39-51); HEMOGLOBIN 10.1 g/dL (13.5-17.5); LYMPHOCYTES # (AUTO) 1.1 K/uL (0.8-4.8); MEAN CORPUSCULAR HGB CONC 32 g/dl (31.0-36.0); MEAN CORPUSCULAR VOLUME 83 fL (80-96); MONOCYTES # (AUTO) 0.7 K/uL (0.1-1.30); MONOCYTES % (AUTO) 8.1 % (2.0-12.0); NEUTROPHILS # (AUTO) 6.6 K/uL (1.8-8.9); NEUTROPHILS % (AUTO) 77.1 % (43.0-81.0); PLATELET COUNT (AUTO) 270 K/uL (150-450); RED BLOOD CELL COUNT(AUTO) 3.74 MIL/uL (4.5-6.0); WHITE BLOOD COUNT (AUTO) 8.6 K/uL (4.3-11.0)
[2022-08-06 23:12] LABS: CALCIUM, SERUM 8.7 mg/dL (8.5-10.1); CARBON DIOXIDE 29 mmol/L (21-32); CHLORIDE 103 mmol/L (98-107); CREATININE 1.7 mg/dL (0.6-1.3); GLUCOSE 262 mg/dL (74-106); POTASSIUM 3.3 mmol/L (3.5-5.1); SERUM AMMONIA 26 umol/L (11-32); SODIUM SERUM 139 mmol/L (136-145); UREA NITROGEN, BLOOD 35 mg/dL (7-18)
[2022-08-06 23:26] LABS: ALANINE AMINOTRANSFERASE 18 U/L (12-78); ALBUMIN 2.1 g/dL (3.4-5.0); ALKALINE PHOSPHATASE 82 U/L (46-116); ASPARTATE AMINOTRANSFERASE 22 U/L (15-37); BILIRUBIN,DIRECT 0.2 mg/dL (0.0-0.2); BILIRUBIN,TOTAL 0.4 mg/dL (0.2-1.0); TOTAL PROTEIN, SERUM 7.4 g/dL (6.4-8.2)
[2022-08-06 23:34] LABS: ALCOHOL, BLOOD < 3 mg/dL (0-0)
[2022-08-06 23:55] LABS: BILIRUBIN,URINE NEGATIVE (NEGATIVE); COLOR,URINE YELLOW (YELLOW); LEUKOCYTE ESTERASE ,URINE 3+ (NEGATIVE); NITRITE, URINE NEGATIVE (NEGATIVE); PROTEIN,URINE 1+ mg/dl (NEGATIVE); UGLUCOSE NEGATIVE (NEGATIVE); UROBILINOGEN,URINE 0.2 EU/dL (0.2)
[2022-08-07] MEDS ORDERED: CEFTRIAXONE 1GM BAG (ER ONLY) 50 ML IV ONE (00:22)
[2022-08-07 00:23] LABS: WBC,URINE 51-80 /HPF (0-3)
[2022-08-07 00:24] LABS: BACTERIA,URINE Many /HPF (None Seen)
[2022-08-07 00:25] LABS: SQUAMOUS EPITHELIAL CELL,UR Few /HPF (None Seen)
[2022-08-07] MEDS ORDERED: ONDANSETRON HCL/PF 4 MG/2 ML VIAL IVP PRN (00:30)
[2022-08-07] MEDS ORDERED: HYDROCORTISONE 1% CREAM 28.35 GM TUBE TP PRN (00:30)
[2022-08-07] MEDS ORDERED: diphenhydrAMINE HCL 25 MG CAPSULE PO PRN (00:30)
[2022-08-07] MEDS ORDERED: DEXTROSE 50%-WATER 50 ML DISP.SYRIN IV PRN (00:30)
[2022-08-07] MEDS ORDERED: POLYETHYLENE GLYCOL 3350 17 GM POWD.PACK PO PRN (00:30)
[2022-08-07] MEDS ORDERED: CEFTRIAXONE 1GM BAG (ER ONLY) 1 GM/50 ML PIGGYBACK IV ONE (00:30)
[2022-08-07] MEDS ORDERED: NITROGLYCERIN 0.4 MG/TAB BOTTLE SL PRN (00:30)
[2022-08-07] MEDS ORDERED: CALCIUM CARBONATE 500 MG TAB.CHEW PO PRN (01:00)
[2022-08-07 01:05] VITALS: BP 165/78
[2022-08-07] MEDS: ENOXAPARIN SODIUM 40 MG/0.4 ML DISP.SYRIN SQ SCH ×2 (01:44→22:33)
[2022-08-07] MEDS: INSULIN REGULAR, HUMAN 100 UNIT/ML 3 ML VIAL SQ PRN ×5 (02:15→22:36)
[2022-08-07] MEDS: BLOOD SUGAR DIAGNOSTIC 1 EACH STRIP IN SCH ×5 (02:16→22:24)
[2022-08-07 04:00] VITALS: BP 129/72
[2022-08-07 08:00] VITALS: BP 153/96
[2022-08-07] MEDS ORDERED: POTASSIUM CHLORIDE 20 MEQ TAB.PRT.SR PO SCH (09:00)
[2022-08-07] MEDS ORDERED: NYSTATIN OINT 100000 UNIT/G 15 GM TUBE TP SCH (09:00)
[2022-08-07] MEDS ORDERED: BACI/NEOM/POLY B OINT PKT 1 UDPKT PACKET TP SCH (09:00)
[2022-08-07] MEDS ORDERED: FUROSEMIDE 20 MG TABLET PO SCH (09:00)
[2022-08-07] MEDS: AMMONIUM LACTATE 227 GM BOTTLE TP SCH (09:08)
[2022-08-07] MEDS: CLOTRIMAZOLE 1% 15 GM TUBE TP SCH ×2 (09:08→16:46)
[2022-08-07] MEDS ORDERED: Z GUARD REMEDY 4 OZ OINT TP PRN (10:00)
[2022-08-07] MEDS: POTASSIUM CHLORIDE 20 MEQ TAB.PRT.SR PO SCH (10:53)
[2022-08-07] MEDS: DIVALPROEX SODIUM 250 MG TABLET.DR PO SCH ×2 (10:53→17:41)
[2022-08-07] MEDS: MINOXIDIL (2.5MG) 2.5 MG TABLET PO SCH ×2 (10:54→17:41)
[2022-08-07] MEDS: METOPROLOL SUCCINATE 25 MG TAB.SR.24H PO SCH (10:55)
[2022-08-07] MEDS: ASPIRIN 81 MG TAB.CHEW PO SCH (10:55)
[2022-08-07] MEDS: CLONIDINE HCL 0.1 MG TABLET PO SCH ×3 (10:56→17:46)
[2022-08-07] MEDS: NYSTATIN CREAM 15 GM TUBE TP SCH ×2 (10:58→21:22)
[2022-08-07] MEDS: Z GUARD REMEDY 4 OZ OINT TP SCH (10:58)
[2022-08-07] MEDS: NEOMY SULF/BACITRAC ZN/POLY 15 GM TUBE TP SCH ×2 (10:58→16:47)
[2022-08-07 12:00] VITALS: BP 148/86
[2022-08-07] MEDS: FINASTERIDE (5 MG) 5 MG TABLET PO SCH (13:00)
[2022-08-07] MEDS: IV NS 0.9% 1,000 ML IV PRN (17:59)
[2022-08-07 20:00] VITALS: BP 97/53
[2022-08-07] MEDS: ATORVASTATIN 40 MG TABLET PO SCH ×3 (22:00→22:55)
[2022-08-07] MEDS: TAMSULOSIN 0.4 MG CAP.SR.24H PO SCH ×3 (22:00→22:55)
[2022-08-07] MEDS: VALSARTAN 80 MG TABLET PO SCH ×3 (22:00→22:55)
[2022-08-07] MEDS: CEFTRIAXONE 1 G in IV D5W 50 ML IV SCH (22:28)
[2022-08-08] MEDS ORDERED: HALOPERIDOL LACTATE INJ 5 MG/ML VIAL IM PRN (00:30)
[2022-08-08 04:00] VITALS: BP 99/59
[2022-08-08] MEDS: BLOOD SUGAR DIAGNOSTIC 1 EACH STRIP IN SCH ×4 (06:36→22:54)
[2022-08-08] MEDS: INSULIN REGULAR, HUMAN 100 UNIT/ML 3 ML VIAL SQ PRN ×4 (06:40→23:06)
[2022-08-08 07:00] VITALS: BP 108/55
[2022-08-08] MEDS: POTASSIUM CHLORIDE 20 MEQ TAB.PRT.SR PO SCH (08:14)
[2022-08-08] MEDS: ASPIRIN 81 MG TAB.CHEW PO SCH (08:14)
[2022-08-08] MEDS: DIVALPROEX SODIUM 250 MG TABLET.DR PO SCH ×2 (08:19→16:44)
[2022-08-08] MEDS: CLONIDINE HCL 0.1 MG TABLET PO SCH ×3 (08:21→16:37)
[2022-08-08] MEDS: MINOXIDIL (2.5MG) 2.5 MG TABLET PO SCH ×2 (08:28→16:37)
[2022-08-08] MEDS: METOPROLOL SUCCINATE 25 MG TAB.SR.24H PO SCH (08:28)
[2022-08-08] MEDS: Z GUARD REMEDY 4 OZ OINT TP SCH (08:31)
[2022-08-08] MEDS: CLOTRIMAZOLE 1% 15 GM TUBE TP SCH ×2 (08:31→16:42)
[2022-08-08] MEDS: NEOMY SULF/BACITRAC ZN/POLY 15 GM TUBE TP SCH ×2 (08:31→16:42)
[2022-08-08] MEDS: NYSTATIN CREAM 15 GM TUBE TP SCH ×2 (08:31→21:16)
[2022-08-08] MEDS ORDERED: PSYL3.4P6 PO (10:23)
[2022-08-08] MEDS ORDERED: GUAI120013 PO (10:23)
[2022-08-08] MEDS ORDERED: LORA-259 PO (10:23)
[2022-08-08 12:02] LABS: EOSINOPHILS % (AUTO) 1.8 % (0.0-6.0); HEMATOCRIT 33 % (39-51); HEMOGLOBIN 10.4 g/dL (13.5-17.5); LYMPHOCYTES # (AUTO) 1.3 K/uL (0.8-4.8); LYMPHOCYTES % (AUTO) 15.1 % (20.0-44.0); MEAN CORPUSCULAR HGB CONC 32 g/dl (31.0-36.0); MEAN CORPUSCULAR VOLUME 86 fL (80-96); MONOCYTES # (AUTO) 0.7 K/uL (0.1-1.30); MONOCYTES % (AUTO) 7.6 % (2.0-12.0); NEUTROPHILS # (AUTO) 6.6 K/uL (1.8-8.9); NEUTROPHILS % (AUTO) 75.5 % (43.0-81.0); PLATELET COUNT (AUTO) 277 K/uL (150-450); RED BLOOD CELL COUNT(AUTO) 3.82 MIL/uL (4.5-6.0); WHITE BLOOD COUNT (AUTO) 8.8 K/uL (4.3-11.0)
[2022-08-08 12:05] LABS: ALANINE AMINOTRANSFERASE 14 U/L (12-78); ALBUMIN 2.1 g/dL (3.4-5.0); ALKALINE PHOSPHATASE 79 U/L (46-116); ASPARTATE AMINOTRANSFERASE 11 U/L (15-37); BILIRUBIN,TOTAL 0.3 mg/dL (0.2-1.0); CALCIUM, SERUM 8.4 mg/dL (8.5-10.1); CARBON DIOXIDE 26 mmol/L (21-32); CHLORIDE 101 mmol/L (98-107); CREATININE 1.7 mg/dL (0.6-1.3); GLUCOSE 244 mg/dL (74-106); MAGNESIUM 1.7 mg/dL (1.8-2.4); PHOSPHORUS 2.1 mg/dL (2.5-4.9); POTASSIUM 3.1 mmol/L (3.5-5.1); SODIUM SERUM 135 mmol/L (136-145); TOTAL PROTEIN, SERUM 7.1 g/dL (6.4-8.2); UREA NITROGEN, BLOOD 35 mg/dL (7-18)
[2022-08-08 12:06] LABS: VALPROIC ACID 37 ug/mL (50-100)
[2022-08-08 12:26] LABS: IRON, SERUM 50 ug/dl (50-175); TOTAL IRON BINDING CAPACITY 169 ug/dl (250-450)
[2022-08-08] MEDS ORDERED: IV NS 0.9% 500 ML IV ONE (13:00)
[2022-08-08] MEDS: CEFTRIAXONE 1 G in IV D5W 50 ML IV SCH (13:14)
[2022-08-08] MEDS: IV NS 0.9% 1,000 ML IV PRN ×3 (13:20→13:25)
[2022-08-08] MEDS: Magnesium 1GM/D5W 100ML PREMIX 100 ML IV SCH ×2 (13:54→14:02)
[2022-08-08] MEDS: FINASTERIDE (5 MG) 5 MG TABLET PO SCH (14:02)
[2022-08-08] MEDS ORDERED: POTASSIUM PHOSPHATE MM 7.5 MMOL in IV NS 0.9% 100 ML IV SCH (15:00)
[2022-08-08 15:39] LABS: BILIRUBIN,DIRECT 0.1 mg/dL (0.0-0.2)
[2022-08-08 16:00] VITALS: BP 108/60
[2022-08-08 19:13] LABS: THYROID STIMULATING HORMONE 2.923 uIU/mL (0.358-3.74)
[2022-08-08 20:00] VITALS: BP 128/75
[2022-08-08 20:30] VITALS: BP 128/75
[2022-08-08] MEDS: TAMSULOSIN 0.4 MG CAP.SR.24H PO SCH (22:55)
[2022-08-08] MEDS: ATORVASTATIN 40 MG TABLET PO SCH (22:55)
[2022-08-08] MEDS: ENOXAPARIN SODIUM 40 MG/0.4 ML DISP.SYRIN SQ SCH ×2 (22:55→22:59)
[2022-08-08] MEDS: VALSARTAN 80 MG TABLET PO SCH (22:55)
[2022-08-09] MEDS: BLOOD SUGAR DIAGNOSTIC 1 EACH STRIP IN SCH ×4 (06:34→21:21)
[2022-08-09] MEDS: ASPIRIN 81 MG TAB.CHEW PO SCH (08:49)
[2022-08-09] MEDS: METOPROLOL SUCCINATE 25 MG TAB.SR.24H PO SCH (08:49)
[2022-08-09] MEDS: MINOXIDIL (2.5MG) 2.5 MG TABLET PO SCH ×2 (08:51→17:51)
[2022-08-09] MEDS: CLONIDINE HCL 0.1 MG TABLET PO SCH ×3 (08:52→17:51)
[2022-08-09] MEDS: POTASSIUM CHLORIDE 20 MEQ TAB.PRT.SR PO SCH (08:55)
[2022-08-09] MEDS: AMMONIUM LACTATE 227 GM BOTTLE TP SCH (08:56)
[2022-08-09] MEDS: NYSTATIN CREAM 15 GM TUBE TP SCH ×2 (08:56→20:47)
[2022-08-09] MEDS: DIVALPROEX SODIUM 250 MG TABLET.DR PO SCH ×2 (08:56→17:51)
[2022-08-09] MEDS: CLOTRIMAZOLE 1% 15 GM TUBE TP SCH ×2 (08:58→17:53)
[2022-08-09] MEDS: NEOMY SULF/BACITRAC ZN/POLY 15 GM TUBE TP SCH ×2 (08:59→17:52)
[2022-08-09] MEDS: Z GUARD REMEDY 4 OZ OINT TP SCH (09:00)
[2022-08-09 09:48] VITALS: BP 174/86
[2022-08-09] MEDS: FINASTERIDE (5 MG) 5 MG TABLET PO SCH (13:55)
[2022-08-09 17:54] VITALS: BP 132/76
[2022-08-09 20:00] VITALS: BP 136/62
[2022-08-09] MEDS: CEFTRIAXONE 1 G in IV D5W 50 ML IV SCH ×2 (21:22→22:00)
[2022-08-09] MEDS: ATORVASTATIN 40 MG TABLET PO SCH (21:25)
[2022-08-09] MEDS: VALSARTAN 80 MG TABLET PO SCH (21:27)
[2022-08-09] MEDS: TAMSULOSIN 0.4 MG CAP.SR.24H PO SCH (21:28)
[2022-08-09] MEDS: ENOXAPARIN SODIUM 40 MG/0.4 ML DISP.SYRIN SQ SCH (21:29)
[2022-08-10] MEDS: BLOOD SUGAR DIAGNOSTIC 1 EACH STRIP IN SCH ×4 (06:33→22:00)
[2022-08-10] MEDS: INSULIN REGULAR, HUMAN 100 UNIT/ML 3 ML VIAL SQ PRN ×2 (06:34→06:44)
[2022-08-10 08:00] VITALS: BP 103/56
[2022-08-10] MEDS: MINOXIDIL (2.5MG) 2.5 MG TABLET PO SCH ×2 (09:00→18:19)
[2022-08-10] MEDS: CLONIDINE HCL 0.1 MG TABLET PO SCH ×3 (09:00→18:18)
[2022-08-10] MEDS: DIVALPROEX SODIUM 250 MG TABLET.DR PO SCH ×2 (09:00→18:18)
[2022-08-10] MEDS: METOPROLOL SUCCINATE 25 MG TAB.SR.24H PO SCH (09:00)
[2022-08-10] MEDS: POTASSIUM CHLORIDE 20 MEQ TAB.PRT.SR PO SCH ×2 (09:00→18:18)
[2022-08-10] MEDS: ASPIRIN 81 MG TAB.CHEW PO SCH (09:00)
[2022-08-10] MEDS: Z GUARD REMEDY 4 OZ OINT TP SCH (10:20)
[2022-08-10] MEDS: CLOTRIMAZOLE 1% 15 GM TUBE TP SCH ×2 (10:22→18:28)
[2022-08-10] MEDS: NYSTATIN CREAM 15 GM TUBE TP SCH ×2 (10:23→21:30)
[2022-08-10] MEDS: NEOMY SULF/BACITRAC ZN/POLY 15 GM TUBE TP SCH ×2 (10:23→18:29)
[2022-08-10] MEDS: FINASTERIDE (5 MG) 5 MG TABLET PO SCH (13:00)
[2022-08-10] MEDS: POTASSIUM CL. PREMIX PERIPHER. 50 ML IV SCH ×4 (14:54→18:00)
[2022-08-10] MEDS: ACETAMINOPHEN 325 MG TABLET PO PRN (15:31)
[2022-08-10] MEDS: TAMSULOSIN 0.4 MG CAP.SR.24H PO SCH ×2 (22:00→22:08)
[2022-08-10] MEDS: CEFTRIAXONE 1 G in IV D5W 50 ML IV SCH ×2 (22:00→22:08)
[2022-08-10] MEDS: VALSARTAN 80 MG TABLET PO SCH (22:00)
[2022-08-10] MEDS: ENOXAPARIN SODIUM 40 MG/0.4 ML DISP.SYRIN SQ SCH ×2 (22:00→22:13)
[2022-08-10] MEDS: ATORVASTATIN 40 MG TABLET PO SCH ×2 (22:00→22:08)
[2022-08-11] MEDS: MORPHINE SULFATE INJ 2 MG/ML DISP.SYRIN IV PRN (00:31)
[2022-08-11] MEDS: INSULIN REGULAR, HUMAN 100 UNIT/ML 3 ML VIAL SQ PRN ×2 (06:39→22:18)
[2022-08-11] MEDS: BLOOD SUGAR DIAGNOSTIC 1 EACH STRIP IN SCH ×4 (06:47→21:44)
[2022-08-11 08:00] VITALS: BP 130/83
[2022-08-11] MEDS: Z GUARD REMEDY 4 OZ OINT TP SCH (10:17)
[2022-08-11] MEDS: NYSTATIN CREAM 15 GM TUBE TP SCH ×2 (10:25→21:00)
[2022-08-11] MEDS: CLOTRIMAZOLE 1% 15 GM TUBE TP SCH ×2 (10:26→17:20)
[2022-08-11] MEDS: NEOMY SULF/BACITRAC ZN/POLY 15 GM TUBE TP SCH ×2 (10:26→17:20)
[2022-08-11] MEDS: ASPIRIN 81 MG TAB.CHEW PO SCH (10:42)
[2022-08-11] MEDS: MINOXIDIL (2.5MG) 2.5 MG TABLET PO SCH ×2 (10:44→17:10)
[2022-08-11] MEDS: DIVALPROEX SODIUM 250 MG TABLET.DR PO SCH ×2 (10:45→17:11)
[2022-08-11] MEDS: METOPROLOL SUCCINATE 25 MG TAB.SR.24H PO SCH (10:45)
[2022-08-11] MEDS: CLONIDINE HCL 0.1 MG TABLET PO SCH ×3 (10:48→17:11)
[2022-08-11] MEDS: AMMONIUM LACTATE 227 GM BOTTLE TP SCH (12:03)
[2022-08-11] MEDS: FINASTERIDE (5 MG) 5 MG TABLET PO SCH (12:25)
[2022-08-11] MEDS: ACETAMINOPHEN 325 MG TABLET PO PRN (15:20)
[2022-08-11 16:22] VITALS: BP 118/65
[2022-08-11] MEDS: ATORVASTATIN 40 MG TABLET PO SCH ×2 (21:21→21:46)
[2022-08-11] MEDS: TAMSULOSIN 0.4 MG CAP.SR.24H PO SCH ×2 (21:21→21:46)
[2022-08-11] MEDS: SULFAMETH/TRIMETH 800/160 MG 1 UDTAB TABLET PO SCH (21:21)
[2022-08-11] MEDS: ENOXAPARIN SODIUM 40 MG/0.4 ML DISP.SYRIN SQ SCH ×2 (21:25→21:46)
[2022-08-11] MEDS: VALSARTAN 80 MG TABLET PO SCH (21:42)
[2022-08-12] MEDS: ACETAMINOPHEN 325 MG TABLET PO PRN (02:28)
[2022-08-12] MEDS: BLOOD SUGAR DIAGNOSTIC 1 EACH STRIP IN SCH ×4 (06:31→21:30)
[2022-08-12] MEDS: INSULIN REGULAR, HUMAN 100 UNIT/ML 3 ML VIAL SQ PRN ×5 (06:32→21:32)
[2022-08-12 08:00] VITALS: BP 152/82
[2022-08-12] MEDS: ASPIRIN 81 MG TAB.CHEW PO SCH (08:34)
[2022-08-12] MEDS: MINOXIDIL (2.5MG) 2.5 MG TABLET PO SCH ×2 (08:34→16:43)
[2022-08-12] MEDS: SULFAMETH/TRIMETH 800/160 MG 1 UDTAB TABLET PO SCH ×2 (08:35→21:14)
[2022-08-12] MEDS: DIVALPROEX SODIUM 250 MG TABLET.DR PO SCH ×2 (08:35→16:40)
[2022-08-12] MEDS: CLONIDINE HCL 0.1 MG TABLET PO SCH ×3 (08:35→16:42)
[2022-08-12] MEDS: POTASSIUM CHLORIDE 20 MEQ TAB.PRT.SR PO SCH (08:36)
[2022-08-12] MEDS: METOPROLOL SUCCINATE 25 MG TAB.SR.24H PO SCH (08:36)
[2022-08-12] MEDS: OLANZAPINE ZYDIS 5 MG TAB.RAPDIS PO SCH ×2 (08:37→16:41)
[2022-08-12] MEDS: CLOTRIMAZOLE 1% 15 GM TUBE TP SCH ×2 (08:52→17:11)
[2022-08-12] MEDS: NYSTATIN CREAM 15 GM TUBE TP SCH ×2 (08:52→21:14)
[2022-08-12] MEDS: Z GUARD REMEDY 4 OZ OINT TP SCH (08:52)
[2022-08-12] MEDS: NEOMY SULF/BACITRAC ZN/POLY 15 GM TUBE TP SCH ×2 (08:52→17:11)
[2022-08-12] MEDS ORDERED: FINA5TAB3 PO (12:13)
[2022-08-12] MEDS ORDERED: VALS80TA31 PO (12:13)
[2022-08-12] MEDS ORDERED: POTA20TA83 PO (12:13)
[2022-08-12] MEDS ORDERED: OLAN5TAB6 PO (12:13)
[2022-08-12] MEDS ORDERED: AMMO225L14 TP (12:13)
[2022-08-12] MEDS ORDERED: ASPI-1169 PO (12:13)
[2022-08-12] MEDS ORDERED: Tamsulosin PO (12:13)
[2022-08-12] MEDS ORDERED: DIVA250T4 PO (12:13)
[2022-08-12] MEDS ORDERED: MINO2.5T PO (12:13)
[2022-08-12] MEDS ORDERED: Neomy Sulf/Bacitrac Zn/Poly TP (12:13)
[2022-08-12] MEDS ORDERED: HYDR28.32 TP (12:13)
[2022-08-12] MEDS ORDERED: METO25TA4 PO (12:13)
[2022-08-12] MEDS ORDERED: CLOT15CR35 TP (12:13)
[2022-08-12] MEDS ORDERED: ATOR40TA PO (12:13)
[2022-08-12] MEDS ORDERED: CLON0.1T PO (12:13)
[2022-08-12] MEDS ORDERED: POLY17PO29 PO (12:13)
[2022-08-12] MEDS ORDERED: CALC500T63 PO (12:13)
[2022-08-12] MEDS ORDERED: NYST15CR TP (12:13)
[2022-08-12] MEDS ORDERED: ACET325T53 PO (12:13)
[2022-08-12] MEDS ORDERED: Sulfameth/Trimeth 800/160 Mg PO (12:13)
[2022-08-12] MEDS: FINASTERIDE (5 MG) 5 MG TABLET PO SCH (13:03)
[2022-08-12 16:00] VITALS: BP 117/68
[2022-08-12] MEDS: MORPHINE SULFATE INJ 2 MG/ML DISP.SYRIN IV PRN (17:16)
[2022-08-12 20:00] VITALS: BP 97/60
[2022-08-12] MEDS: VALSARTAN 80 MG TABLET PO SCH (21:14)
[2022-08-12] MEDS: ATORVASTATIN 40 MG TABLET PO SCH (21:15)
[2022-08-12] MEDS: TAMSULOSIN 0.4 MG CAP.SR.24H PO SCH (21:15)
[2022-08-12] MEDS: ENOXAPARIN SODIUM 40 MG/0.4 ML DISP.SYRIN SQ SCH (21:16)
[2022-08-13] MEDS: ACETAMINOPHEN 325 MG TABLET PO PRN (04:05)
[2022-08-13] MEDS: BLOOD SUGAR DIAGNOSTIC 1 EACH STRIP IN SCH (06:30)
[2022-08-13] MEDS: INSULIN REGULAR, HUMAN 100 UNIT/ML 3 ML VIAL SQ PRN (06:33)
[2022-08-13 08:00] VITALS: BP 130/66
[2022-08-13] MEDS: ASPIRIN 81 MG TAB.CHEW PO SCH (09:44)
[2022-08-13] MEDS: SULFAMETH/TRIMETH 800/160 MG 1 UDTAB TABLET PO SCH (09:44)
[2022-08-13] MEDS: DIVALPROEX SODIUM 250 MG TABLET.DR PO SCH (09:45)
[2022-08-13] MEDS: CLONIDINE HCL 0.1 MG TABLET PO SCH (09:45)
[2022-08-13] MEDS: POTASSIUM CHLORIDE 20 MEQ TAB.PRT.SR PO SCH (09:45)
[2022-08-13] MEDS: METOPROLOL SUCCINATE 25 MG TAB.SR.24H PO SCH (09:46)
[2022-08-13 09:48] VITALS: BP 130/66
[2022-08-13] MEDS: MINOXIDIL (2.5MG) 2.5 MG TABLET PO SCH (09:48)
[2022-08-13] MEDS: OLANZAPINE ZYDIS 5 MG TAB.RAPDIS PO SCH (09:49)
[2022-08-13] MEDS: CLOTRIMAZOLE 1% 15 GM TUBE TP SCH (09:50)
[2022-08-13] MEDS: AMMONIUM LACTATE 227 GM BOTTLE TP SCH (09:50)
[2022-08-13] MEDS: NYSTATIN CREAM 15 GM TUBE TP SCH (09:51)
[2022-08-13] MEDS: NEOMY SULF/BACITRAC ZN/POLY 15 GM TUBE TP SCH (09:51)
[2022-08-13] MEDS: Z GUARD REMEDY 4 OZ OINT TP SCH (09:59)
== END 2022-08-13 12:45 | DRG 463 ==
LOC: ER 21:32 → TELE 08-07 00:25 → MED 08-08 14:48
PROVIDERS: ADMIT Nurse Practitioner Acute Care; ATTEND Nurse Practitioner Acute Care
DX: N39.0 Urinary tract infection, site not specified (principal); N17.0 Acute kidney failure with tubular necrosis; G92.8 Other toxic encephalopathy; E43 Unspecified severe protein-calorie malnutrition; L89.153 Pressure ulcer of sacral region, stage 3; E87.20 Acidosis, unspecified; G93.89 Other specified disorders of brain; I50.9 Heart failure, unspecified; E88.09 Other disorders of plasma-protein metabolism, not elsewhere classified; D63.8 Anemia in other chronic diseases classified elsewhere; I11.0 Hypertensive heart disease with heart failure; E11.9 Type 2 diabetes mellitus without complications; E78.5 Hyperlipidemia, unspecified; I25.10 Atherosclerotic heart disease of native coronary artery without angina pectoris; Z20.822 Contact with and (suspected) exposure to COVID-19; Z95.1 Presence of aortocoronary bypass graft; N40.0 Benign prostatic hyperplasia without lower urinary tract symptoms; Z79.4 Long term (current) use of insulin; Z79.84 Long term (current) use of oral hypoglycemic drugs; Z79.899 Other long term (current) drug therapy; Z79.82 Long term (current) use of aspirin; E87.6 Hypokalemia; I87.2 Venous insufficiency (chronic) (peripheral); I87.8 Other specified disorders of veins; D50.9 Iron deficiency anemia, unspecified; Z96.643 Presence of artificial hip joint, bilateral; B96.20 Unspecified Escherichia coli [E. coli] as the cause of diseases classified elsewhere; E66.01 Morbid (severe) obesity due to excess calories; I44.7 Left bundle-branch block, unspecified; Z79.01 Long term (current) use of anticoagulants; Z85.828 Personal history of other malignant neoplasm of skin; Z90.49 Acquired absence of other specified parts of digestive tract; Z91.148 Patient's other noncompliance with medication regimen for other reason; S90.931A Unspecified superficial injury of right great toe, initial encounter; X58.XXXA Exposure to other specified factors, initial encounter; Y93.9 Activity, unspecified; Y92.9 Unspecified place or not applicable; G47.00 Insomnia, unspecified; R41.9 Unspecified symptoms and signs involving cognitive functions and awareness; M19.90 Unspecified osteoarthritis, unspecified site
CPT/HCPCS: 36415; 70450-TC; 71045-TC; 80048-TC; 80053-TC; 80076-TC; 80164-TC; 81001; 82140-TC; 82248-TC; 82607-TC; 82962-TC; 83540-TC; 83605-TC; 83735-TC; 84100-TC; 84443-TC; 84484-TC; 85025-TC; 85730-TC; 87040-TC; 87081-TC; 87086-TC; A4223; C9803; G0378; G0480; J0696; J1630; J1650; J1815; J2270; J3475; J3480; J3490; J7030; J7040; J7060